=== PATIENT | female | born 1945 | race Caucasian/White ===

== ENCOUNTER 2017-11-29 19:08 | Inpatient (IN) | payer MEDICARE, MEDICAID ==
--- NOTE | 2017-11-29 19:38 | ED Physician Chart ---
ED Chief Complaint/HPI - Patient Information Date Seen:: 11/29/17 Time Seen:: 19:33 Chief Complaint:: weakness History of Present Illness:: 72 yr old female with weakness from home with her son who she lives with with dm and failure to thrive pt awake alert hx of rt mastectomy and lung ca all under control no abd pain or fever no cough no cp no nvd Allergies:: Allergies Allergy/AdvReac Type Severity Reaction Status Date / Time acetaminophen [From Vicodin] Allergy Verified 11/29/17 19:15 hydrocodone [From Vicodin] Allergy Verified 11/29/17 19:15 morphine Allergy Verified 11/29/17 19:15 Penicillins Allergy Verified 11/29/17 19:15 Vitals:: Vital Signs - 8 hr 11/29/17 19:15 Temp 97.9 F HR 73 RR 16 BP 97/54 O2 Sat % 97 Historian:: Patient, Family Member, Medical Records ED Review of Systems - Review of Systems General/Constitutional: No fever, No chills, No weight loss, No weakness, No diaphoresis, No edema, No loss of appetite Skin: No skin lesions, No rash, No bruising Head: No headache, No light-headedness Eyes: No loss of vision, No pain, No diplopia ENT: No earache, No nasal drainage, No sore throat, No tinnitus Neck: No neck pain, No swelling, No thyromegaly, No stiffness, No mass noted Cardio Vascular: No chest pain, No palpitations, No PND, No orthopnea, No edema Pulmonary: No SOB, No cough, No sputum, No wheezing GI: No nausea, No vomiting, No diarrhea, No pain, No melena, No hematochezia, No constipation, No hematemesis G/U: No dysuria, No frequency, No hematuria Musculoskeletal: No bone or joint pain, No back pain, No muscle pain Endocrine: No polyuria, No polydipsia Psychiatric: No prior psych history, No depression, No anxiety, No suicidal ideation Hematopoietic: No bruising, No lymphadenopathy Allergic/Immuno: No urticaria, No angioedema Neurological: No syncope, No focal symptoms, No weakness, No paresthesia, No headache, No seizure, No dizziness, No confusion, No vertigo ED Past Medical History - Past Medical History Past Medical History: DM, Other (breast ca, lung ca) Family Medical History - Family Member Mother Ethnicity: Non- Living Status: Hx Family Diabetes: Yes ED Physical Exam - Physical Examination General/Constitutional: Awake, Well-developed, well-nourished, Alert, No distress, GCS 15, Non-toxic appearing, Ambulatory Other Gen/Cons comments:: extreme muscle wasting no muscle hardly Head: Atraumatic Eyes: Lids, conjuctiva normal, PERRL, EOMI Skin: No lymphadenopathy ( ecchymosis and bruising lower legs) Other Skin comments:: rt mastectomy ENMT: External ears, nose nl, Nasal exam nl, Lips, teeth, gums nl Neck: Nontender, Full ROM w/o pain, No JVD, No nuchal rigidity, No bruit, No mass, No stridor Respiratory: Nl effort/Exclusion, Clear to Auscultation, No Wheeze/Rhonchi/Rales Cardio Vascular: RRR, No murmur, gallop, rubs, NL S1 S2 GI: No tenderness/rebounding/guarding, No organomegaly, No hernia, Normal BS's, Nondistended, No mass/bruits, No McBurney tenderness : No CVA tenderness Extremities: No tenderness or effusion, Full ROM, normal strength in all extremities, No edema, Normal digits & nails Neuro/Psych: Alert/oriented, DTR's symmetric, Normal sensory exam, Normal motor strength, Judgement/insight normal, Mood normal, Normal gait, No focal deficits Misc: Normal back, No paraspinal tenderness ED Assessment - Assessment General Assessment: failure to thrive ED Septic Shock - . Is Septic Shock (SBP<90, OR Lactate>4 mmol\L) present?: No - <6hrs of presentation: Vital Signs: Vital Signs - 8 hr 11/29/17 19:15 Temp 97.9 F HR 73 RR 16 BP 97/54 O2 Sat % 97 ED Reassessment (Disposition) - Diagnosis Diagnosis:: failure to thrive for admission DR doss - Patient Disposition Admitted to:: Med/Surg
[2017-11-29 20:02] LABS: HEMOGLOBIN 9.7 gm/dL (12-16); MANUAL DIFF REQUIRED? YES; PLATELET COUNT 229 Th/cmm (150-400)
[2017-11-29 20:05] LABS: HEMATOCRIT 28.6 % (41.0-60); MEAN CORPUSCULAR HEMOGLOBIN 31.7 pg (27.0-31.0); MEAN CORPUSCULAR HGB CONC 33.8 pg (28.0-36.0); RED BLOOD COUNT 3.04 Mil/cmm (3.80-5.20); RED CELL DISTRIBUTION WIDTH 14.3 % (11.5-20.0); WHITE BLOOD COUNT 6.8 Th/cmm (4.8-10.8)
[2017-11-29 20:29] LABS: ALB/GLOB RATIO 1.5 (1.0-1.8); ALBUMIN 3.7 gm/dL (3.7-5.3); ANION GAP 15.8 (7.0-16.0); BILIRUBIN,TOTAL 0.4 mg/dL (0.3-1.0); CALCIUM SERUM 8.7 mg/dL (8.6-10.3); CARBON DIOXIDE 16.8 mEq/L (21.0-31.0); CREATININE - SERUM 1.5 mg/dL (0.6-1.2); GFR AFRICAN-AMERICAN 44.2 ml/min (>90); GFR NON AFRICAN-AMERICAN 36.5 ml/min; POTASSIUM SERUM 4.6 mEq/L (3.5-5.1); TOTAL PROTEIN,SERUM 6.2 gm/dL (6.0-8.3)
[2017-11-29 20:32] LABS: BAND NEUTROPHILE 1 % (0-10); BASOPHIL 0 % (0-3); EOSINOPHIL 0 % (0-5); LYMPHOCYTE 6 % (20-50); MONOCYTE 5 % (2-10); NEUTROPHILS 88 % (40-80); PLATELET ESTIMATE ADEQUATE (NORMAL); TOTAL CELLS COUNTED 100
[2017-11-30 01:32] VITALS: BP 109/57
[2017-11-30 06:04] LABS: HEMATOCRIT 27.2 % (41.0-60); MEAN CELL VOLUME 93.2 fl (81-100); MEAN CORPUSCULAR HGB CONC 33.2 pg (28.0-36.0); MEAN PLATELET VOLUME 6.6 fl; PLATELET COUNT 219 Th/cmm (150-400); RED BLOOD COUNT 2.91 Mil/cmm (3.80-5.20); WHITE BLOOD COUNT 6.1 Th/cmm (4.8-10.8)
[2017-11-30 06:18] LABS: ALB/GLOB RATIO 1.5 (1.0-1.8); ALBUMIN 3.4 gm/dL (3.7-5.3); BILIRUBIN,TOTAL 0.3 mg/dL (0.3-1.0); CALCIUM SERUM 8.6 mg/dL (8.6-10.3); CARBON DIOXIDE 17.3 mEq/L (21.0-31.0); CREATININE - SERUM 1.5 mg/dL (0.6-1.2); GFR AFRICAN-AMERICAN 44.2 ml/min (>90); GFR NON AFRICAN-AMERICAN 36.5 ml/min; POTASSIUM SERUM 4.3 mEq/L (3.5-5.1); TOTAL PROTEIN,SERUM 5.7 gm/dL (6.0-8.3)
[2017-11-30 06:30] LABS: CHOLESTEROL 94 mg/dL (<200); HDL -HIGH DENSITY LIPOPROTEIN 38 mg/dL (23-92); TRIGLYCERIDES 137 mg/dL (<150)
[2017-11-30 07:12] LABS: BAND NEUTROPHILE 2 % (0-10); EOSINOPHIL 2 % (0-5); LYMPHOCYTE 7 % (20-50); MANUAL DIFF REQUIRED? YES; MONOCYTE 3 % (2-10); NEUTROPHILS 86 % (40-80); PLATELET ESTIMATE ADEQUATE (NORMAL); TOTAL CELLS COUNTED 100
[2017-11-30] MEDS ORDERED: Albuterol/Ipratropium Neb 3 ML AERS HHN ONE ×2 (07:35→12:34)
--- NOTE | 2017-11-30 08:52 | Diagnostic Imaging Report ---
CHEST X-RAY: AP view INDICATION: Shortness of breath COMPARISON: None FINDINGS: Increased interstitial lung markings are seen particularly of the right lung and right suprahilar region with suggestion of mild prominence of right suprahilar region. No focal consolidation or effusions. Heart size normal. Atherosclerosis is noted with tortuous aorta. Postsurgical changes of the right axillary region are noted. Degenerative changes of the spine are noted with scoliosis. IMPRESSION: Increased interstitial lung markings, particularly of the right lung. Underlying interstitial infiltrates of the right lung cannot be excluded. There is fullness of the right suprahilar region. Underlying occult mass lesion or lymphadenopathy cannot be excluded. Recommend short-term follow-up preferably with CT of the chest with IV contrast.
--- NOTE | 2017-11-30 09:24 | Consultation ---
DATE OF CONSULTATION: 11/30/2017 INPATIENT GI CONSULTATION CONSULTING PHYSICIAN: Veronica Diaz M.D. REASON FOR CONSULTATION: Failure to thrive and weakness. HISTORY OF PRESENT ILLNESS: The patient is a 72-year-old female with past medical history significant for COPD, type 2 diabetes, previous breast cancer and lung cancer who was admitted to the hospital with weakness and failure to thrive as per her family members. The patient reports that she was brought in by family as they were concerned about her not eating well, feeling more weak than usual at home; however, she notes that she does have an appetite and she did eat her breakfast this morning completely. She denies any dysphagia or problem swallowing. She reports that she is hungry, but that she has been maintaining herself on carb-restricted diet given some kidney issues. The patient notes that she has had an EGD and colonoscopy before, but she thinks this was about 10 years ago ____ and she was told that the results were normal. She also reports some increasing amounts of constipation recently, although denies any blood in her stool or hematemesis or melena. Of note, the patient reports that she would not want a G-tube placed if this was offered to her. PAST MEDICAL HISTORY: Type 2 diabetes, COPD, previous breast and lung cancer, constipation. PAST SURGICAL HISTORY: The patient denies any abdominal surgeries. FAMILY HISTORY: Noncontributory. SOCIAL HISTORY: The patient recently quit smoking about 3 months ago. She drinks two cocktails a week, she reports. ALLERGIES: Reported allergy to acetaminophen, hydrocodone, morphine and penicillin. REVIEW OF SYSTEMS: A 12-point review of systems was performed and the patient is negative other than the pertinent positives are mentioned in the history of present illness. CURRENT MEDICATIONS: Included albuterol. PHYSICAL EXAMINATION: VITAL SIGNS: Blood pressure is 135/70, pulse 96 beats per minute, temperature 98.8, oxygenation is 94%. GENERAL: The patient is sitting upright in bed, alert and oriented x 3. She appears in no apparent distress. HEAD, EARS, EYES, NOSE AND THROAT: Normocephalic, atraumatic appearing head. Pupils are equal and reactive to light. Extraocular muscles are intact with moist mucous membranes. There is some temporal wasting. NECK: No JVD or thyromegaly or lymphadenopathy. CHEST: Clear to auscultation bilaterally. CARDIOVASCULAR: S1, S2 are present, regular rate and rhythm. ABDOMEN: Soft, nontender to palpation. No guarding, no rebound, no fluid distention. EXTREMITIES: Frail appearing. No edema. Pulses are not present. SKIN: There are no obvious jaundice or cyanosis. LABORATORY DATA: White blood cell count is 6.1, hemoglobin 9.0, platelet count is 219. Sodium 130, BUN 67, creatinine 1.5. AST 24, ALT 21, total bilirubin 0.3. No abdominal imaging has been performed. IMPRESSION: This is a 72-year-old female who is admitted to the hospital with weakness, failure to thrive, who has a history of breast and lung cancer. PLAN: 1. Weakness. 2. Failure to thrive. 3. Constipation and change in bowel habits. 4. Weight loss. 5. History of breast and lung cancer. DISCUSSION: I spoke with the patient today about her eating habits and she reports that she is hungry and able to swallow well, although she has been restricting herself with carb diet. She fears that this is affecting her kidneys. It seems that she has been losing weight as she does appear very frail. Her last EGD and colonoscopy was about 10 years ago and she reports this was normal. Given her change in bowel habits and her weight loss, I think that repeating EGD and colonoscopy now is likely warranted to ensure that there is no neoplasm. Of note, the patient does not want a G-tube placed, this was offered to her. She reports that she eats and swallows food well at this point and does not think she needs a G-tube and will not consent for one. RECOMMENDATIONS: 1. We will plan for EGD and colonoscopy on Saturday morning with bowel preparation Saturday evening as discussed above. 2. Continue oral diet as tolerated until then. 3. Management of the patient's other chronic medical illnesses as per Dr. Diaz. Thank you for allowing me to participate in her care. Please call with any further questions. JOB# [id number]
[2017-11-30] MEDS ORDERED: Albuterol/Ipratropium Neb 3 ML AERS HHN PRN (15:26)
[2017-11-30 16:10] LABS: A1C % 4.5 % (4.0-6.0)
[2017-11-30] MEDS: Albuterol/Ipratropium Neb 3 ML AERS HHN SCH ×2 (19:00→23:49)
[2017-11-30] MEDS ORDERED: Non-Formulary Item 1 EA (Albuterol Sulfate [Ventolin Hfa] 1 PUFF) IH PRN (22:35)
[2017-11-30] MEDS ORDERED: DEXTROMETHORPHAN HBR 15 MG PO PRN (22:35)
[2017-11-30] MEDS ORDERED: PATIROMER CALCIUM SORBITEX 8.4 GM PO SCH (22:45)
[2017-11-30] MEDS: INSULIN ASPART SLIDING SCALE 100 UNITS/ML UNIT SUBQ SCH (23:37)
[2017-12-01] MEDS: Albuterol/Ipratropium Neb 3 ML AERS HHN SCH ×6 (03:14→22:19)
[2017-12-01] MEDS ORDERED: Ipratropium Neb 0.5 mg/2.5 mL UD HHN SCH (07:00)
--- NOTE | 2017-12-01 08:21 | GI Progress Note ---
Subjective - Review of Systems Service Date: 12/01/17 Subjective: No new events Objective - Results Result Diagrams: 11/30/17 05:00 11/30/17 05:00 Recent Labs: Laboratory Last Values WBC 6.1 Th/cmm (4.8-10.8) 11/30/17 05:00 RBC 2.91 Mil/cmm (3.80-5.20) L 11/30/17 05:00 Hgb 9.0 gm/dL (12-16) L 11/30/17 05:00 Hct 27.2 % (41.0-60) L 11/30/17 05:00 MCV 93.2 fl (81-100) 11/30/17 05:00 MCH 31.0 pg (27.0-31.0) 11/30/17 05:00 MCHC Differential 33.2 pg (28.0-36.0) 11/30/17 05:00 RDW 14.0 % (11.5-20.0) 11/30/17 05:00 Plt Count 219 Th/cmm (150-400) 11/30/17 05:00 MPV 6.6 fl 11/30/17 05:00 Neutrophils % PRODUCTION HELPER 11/30/17 05:00 Band Neutrophils % 2 % (0-10) 11/30/17 05:00 Lymphocytes % PRODUCTION HELPER 11/30/17 05:00 Monocytes % PRODUCTION HELPER 11/30/17 05:00 Eosinophils % PRODUCTION HELPER 11/30/17 05:00 Basophils % PRODUCTION HELPER 11/30/17 05:00 Neutrophils (Manual) 86 % (40-80) H 11/30/17 05:00 Lymphocytes 7 % (20-50) L 11/30/17 05:00 Monocytes 3 % (2-10) 11/30/17 05:00 Eosinophils 2 % (0-5) 11/30/17 05:00 Basophils 0 % (0-3) 11/29/17 19:57 Platelet Estimate ADEQUATE (NORMAL) 11/30/17 05:00 Sodium 130 mEq/L (136-145) L 11/30/17 05:00 Potassium 4.3 mEq/L (3.5-5.1) 11/30/17 05:00 Chloride 105 mEq/L (98-107) 11/30/17 05:00 Carbon Dioxide 17.3 mEq/L (21.0-31.0) L 11/30/17 05:00 Anion Gap 12.0 (7.0-16.0) 11/30/17 05:00 BUN 67 mg/dL (7-25) H 11/30/17 05:00 Creatinine 1.5 mg/dL (0.6-1.2) H 11/30/17 05:00 Est GFR ( Amer) 44.2 ml/min (>90) 11/30/17 05:00 Est GFR (Non-Af Amer) 36.5 ml/min 11/30/17 05:00 BUN/Creatinine Ratio 44.7 11/30/17 05:00 Glucose 379 mg/dL (70-105) H D 11/30/17 05:00 POC Glucose 218 MG/DL (70 - 105) H 12/01/17 06:27 Hemoglobin A1c % 4.5 % (4.0-6.0) 11/30/17 05:00 Calcium 8.6 mg/dL (8.6-10.3) 11/30/17 05:00 Total Bilirubin 0.3 mg/dL (0.3-1.0) 11/30/17 05:00 AST 24 U/L (13-39) 11/30/17 05:00 ALT 21 U/L (7-52) 11/30/17 05:00 Alkaline Phosphatase 60 U/L (34-104) 11/30/17 05:00 Total Protein 5.7 gm/dL (6.0-8.3) L 11/30/17 05:00 Albumin 3.4 gm/dL (3.7-5.3) L 11/30/17 05:00 Globulin 2.3 gm/dL 11/30/17 05:00 Albumin/Globulin Ratio 1.5 (1.0-1.8) 11/30/17 05:00 Triglycerides 137 mg/dL (<150) 11/30/17 05:00 Cholesterol 94 mg/dL (<200) 11/30/17 05:00 LDL Cholesterol Direct 28 mg/dL (75-193) L 11/30/17 05:00 HDL Cholesterol 38 mg/dL (23-92) 11/30/17 05:00 - Physical Exam Vitals and I&O: Vital Signs Temp 99.1 F 12/01/17 07:53 Pulse 104 06/24/18 07:53 Resp 18 12/01/17 08:00 BP 114/59 12/01/17 07:53 Pulse Ox 91 12/01/17 07:53 Intake & Output 11/30/17 12/01/17 12/01/17 18:59 06:59 18:59 Intake Total 1000 Balance 1000 Weight (lbs) 45.178 kg 48.081 kg Intake: Oral 1000 Other: # Voids 3 # Bowel Movements 0 Weight Source Bedscale Bedscale Active Medications: Current Medications Acetaminophen (Tylenol Extra Strength) 1,000 mg PO BID [facility] Stop: 01/30/18 08:59 Albuterol/Ipratropium (Duoneb Neb) 3 ml HHN Q4HRT [facility] Stop: 01/29/18 18:59 Last Admin: 12/01/17 06:47 Dose: 3 ml Albuterol/Ipratropium (Duoneb Neb) 3 ml HHN [id number] PRN PRN Reason: Shortness of Breath Stop: 01/29/18 18:59 Aspirin (Aspirin Chewable) 81 mg PO DAILY ANG[facility] Stop: 01/30/18 08:59 Atorvastatin Calcium (Lipitor) 80 mg PO QPM ANGELA; Protocol Stop: 01/30/18 16:59 Clopidogrel Bisulfate (Plavix) 75 mg PO DAILY [facility] Stop: 01/30/18 08:59 Fluticasone Propionate (Flonase) 1 spr NS QPM [facility] Stop: 01/30/18 16:59 Insulin Aspart (Novolog Insulin Sliding Scale) 0 units SUBQ Q6HR ANGELA; Protocol Stop: 01/30/18 00:00 Last Admin: 11/30/17 23:37 Dose: 8 units Ipratropium [place] (Atrovent Neb 0.5mg/2.5ml) 0.5 mg HHN QIDRT ANGELA Stop: 01/30/18 06:59 Miscellaneous (Albuterol Sulfate [Ventolin Hfa]) 1 puff IH BID PRN PRN Reason: Shortness of Breath Miscellaneous (Cholecalciferol (Vitamin D3) [Vitamin D3]) 1 tab PO DAILY [facility] Stop: 01/30/18 08:59 Miscellaneous (Cyanocobalamin/Folic Acid [Vitamin W96-Ddoiw Acid Tablet]) 1 each PO DAILY [facility] Stop: 01/30/18 08:59 Miscellaneous (Dextromethorphan Hbr [Tussin Cough]) 15 mg PO QPM PRN PRN Reason: Cough Miscellaneous (Fluticasone/Vilanterol [Breo Ellipta 200-25 Mcg Inh]) 1 each IH QPM [facility]GEL[facility] Stop: 01/30/18 16:59 Miscellaneous (Insulin Glargine,Hum.Rec.Anlog [Lantus Solostar]) 15 unit SQ QPM [facility] Stop: 01/30/18 16:59 Miscellaneous (Patiromer Calcium Sorbitex [Veltassa]) 8.4 gm PO 2XW [facility] Stop: 01/29/18 22:44 Montelukast Sodium (Singulair) 10 mg PO QPM [facility] Stop: 01/30/18 16:59 Multivitamins/Vitamin C (Theragran) 1 tab PO DAILY ANG[facility] Stop: 01/30/18 08:59 Nicotine (Nicotine Transdermal System) 21 mg TD DAILY ANG[facility] Stop: 01/30/18 08:59 Venlafaxine HCl (Effexor) mg PO DAILY ANGELA; Protocol Stop: 01/30/18 08:59 General: Alert, Oriented x3 HEENT: Atraumatic Cardiovascular: Regular rate Abdomen: Bowel sounds, Soft, no Tender, no Hepatomegaly, no Splenomegaly, no Distended, no Rebound, no Mass Extremities: no Clubbing Skin: no Rash Psych/Mental Status: Mental status NL - Procedures Procedures: Procedures Procedure Code Date INDIVID PSYCHOTHERAP NEC 94.39 06/14/05 OTHER GROUP THERAPY 94.44 06/14/05 RECREATIONAL THERAPY 93.81 06/14/05 Assessment/Plan - Assessment Assessment: # Anorexia # failure to thrive # Weight loss # Constipation # COPD # History of breast cancer Pt notes she has been losing weight, but she has been eating and has an appetite. Also reports onset of constipation over the past several months. Last EGD/colo was about 10 years ago as per the patient Plan: - EGD/colo tomorrow with bowel prep tonight. - clears, NPO after midnight - 4 L golytely Further recommendations to follow endoscopy
[2017-12-01] MEDS: Multivitamin Tab PO SCH (09:14)
[2017-12-01] MEDS: Nicotine 21 mg/24 hr Tdm TD SCH (09:14)
[2017-12-01] MEDS: Aspirin 81mg Chewable Tab PO SCH (09:15)
[2017-12-01] MEDS: Acetaminophen 500 MG TAB PO SCH ×2 (09:15→17:08)
[2017-12-01] MEDS: Non-Formulary Item 1 EA (Cholecalciferol (Vitamin D3) [Vitamin D3] 1 TAB) PO SCH (09:16)
[2017-12-01] MEDS: INSULIN ASPART SLIDING SCALE 100 UNITS/ML UNIT SUBQ SCH ×4 (09:19→23:37)
[2017-12-01] MEDS: CYANOCOBALAMIN PO SCH (09:19)
[2017-12-01] MEDS: FOLIC ACID PO SCH (09:19)
[2017-12-01] MEDS: [UNRECOGNIZED DRUG - OTHER] PO SCH (09:19)
--- NOTE | 2017-12-01 09:43 | Diagnostic Imaging Report ---
Head CT without intravenous contrast Indication: CVA Comparison: None Technique: Axial images were obtained from the vertex to the skull base without IV contrast. Coronal reconstructions were made. Total DLP: 843, CTDI 44 FINDINGS: Images of the brain obtained without contrast demonstrate no evidence of an acute hemorrhage. Right parietal occipital lobe encephalomalacia is noted. The ventricles and basal cisterns are patent. There is mild atrophy. No mass effect or midline shift. No evidence of a skull fracture or focal soft tissue swelling. There is mild mucosal thickening in the paranasal sinuses. Atherosclerosis is noted. IMPRESSION: No evidence of acute intracranial hemorrhage. 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 Mild atrophy. Atherosclerotic vascular disease.
--- NOTE | 2017-12-01 11:51 | General Progress Note ---
Subjective - Review of Systems Events since last encounter: in no distress Objective - Results Result Diagrams: 11/30/17 05:00 11/30/17 05:00 Recent Labs: Laboratory Last Values WBC 6.1 Th/cmm (4.8-10.8) 11/30/17 05:00 RBC 2.91 Mil/cmm (3.80-5.20) L 11/30/17 05:00 Hgb 9.0 gm/dL (12-16) L 11/30/17 05:00 Hct 27.2 % (41.0-60) L 11/30/17 05:00 MCV 93.2 fl (81-100) 11/30/17 05:00 MCH 31.0 pg (27.0-31.0) 11/30/17 05:00 MCHC Differential 33.2 pg (28.0-36.0) 11/30/17 05:00 RDW 14.0 % (11.5-20.0) 11/30/17 05:00 Plt Count 219 Th/cmm (150-400) 11/30/17 05:00 MPV 6.6 fl 11/30/17 05:00 Neutrophils % PLATE WORKER 11/30/17 05:00 Band Neutrophils % 2 % (0-10) 11/30/17 05:00 Lymphocytes % PLATE WORKER 11/30/17 05:00 Monocytes % PLATE WORKER 11/30/17 05:00 Eosinophils % PLATE WORKER 11/30/17 05:00 Basophils % PLATE WORKER 11/30/17 05:00 Neutrophils (Manual) 86 % (40-80) H 11/30/17 05:00 Lymphocytes 7 % (20-50) L 11/30/17 05:00 Monocytes 3 % (2-10) 11/30/17 05:00 Eosinophils 2 % (0-5) 11/30/17 05:00 Basophils 0 % (0-3) 11/29/17 19:57 Platelet Estimate ADEQUATE (NORMAL) 11/30/17 05:00 Sodium 130 mEq/L (136-145) L 11/30/17 05:00 Potassium 4.3 mEq/L (3.5-5.1) 11/30/17 05:00 Chloride 105 mEq/L (98-107) 11/30/17 05:00 Carbon Dioxide 17.3 mEq/L (21.0-31.0) L 11/30/17 05:00 Anion Gap 12.0 (7.0-16.0) 11/30/17 05:00 BUN 67 mg/dL (7-25) H 11/30/17 05:00 Creatinine 1.5 mg/dL (0.6-1.2) H 11/30/17 05:00 Est GFR ( Amer) 44.2 ml/min (>90) 11/30/17 05:00 Est GFR (Non-Af Amer) 36.5 ml/min 11/30/17 05:00 BUN/Creatinine Ratio 44.7 11/30/17 05:00 Glucose 379 mg/dL (70-105) H D 11/30/17 05:00 POC Glucose 218 MG/DL (70 - 105) H 12/01/17 06:27 Hemoglobin A1c % 4.5 % (4.0-6.0) 11/30/17 05:00 Calcium 8.6 mg/dL (8.6-10.3) 11/30/17 05:00 Total Bilirubin 0.3 mg/dL (0.3-1.0) 11/30/17 05:00 AST 24 U/L (13-39) 11/30/17 05:00 ALT 21 U/L (7-52) 11/30/17 05:00 Alkaline Phosphatase 60 U/L (34-104) 11/30/17 05:00 Total Protein 5.7 gm/dL (6.0-8.3) L 11/30/17 05:00 Albumin 3.4 gm/dL (3.7-5.3) L 11/30/17 05:00 Globulin 2.3 gm/dL 11/30/17 05:00 Albumin/Globulin Ratio 1.5 (1.0-1.8) 11/30/17 05:00 Triglycerides 137 mg/dL (<150) 11/30/17 05:00 Cholesterol 94 mg/dL (<200) 11/30/17 05:00 LDL Cholesterol Direct 28 mg/dL (75-193) L 11/30/17 05:00 HDL Cholesterol 38 mg/dL (23-92) 11/30/17 05:00 - Physical Exam Vitals and I&O: Vital Signs Temp 99.1 F 12/01/17 07:53 Pulse 104 12/01/17 07:53 Resp 18 12/01/17 08:00 BP 114/59 12/01/17 07:53 Pulse Ox 91 12/01/17 07:53 Intake & Output 11/30/17 12/01/17 12/01/17 18:59 06:59 18:59 Intake Total 1000 Balance 1000 Weight (lbs) 45.178 kg 48.081 kg Intake: Oral 1000 Other: # Voids 3 # Bowel Movements 0 Weight Source Bedscale Bedscale Active Medications: Current Medications Acetaminophen (Tylenol Extra Strength) 1,000 mg PO BID [facility] Stop: 01/30/18 08:59 Last Admin: 12/01/17 09:15 Dose: 1,000 mg Albuterol/Ipratropium (Duoneb Neb) 3 ml HHN Q4HRT [facility] Stop: 01/29/18 18:59 Last Admin: 12/01/17 06:47 Dose: 3 ml Albuterol/Ipratropium (Duoneb Neb) 3 ml HHN [id number] PRN PRN Reason: Shortness of Breath Stop: 01/29/18 18:59 Aspirin (Aspirin Chewable) 81 mg PO DAILY [facility] Stop: 01/30/18 08:59 Last Admin: 12/01/17 09:15 Dose: Not Given Atorvastatin Calcium (Lipitor) 80 mg PO QPM [facility]; Protocol Stop: 01/30/18 16:59 Bisacodyl (Dulcolax 5 Mg Ec Tab) 10 mg PO X1 ONE Stop: 12/01/17 16:01 Clopidogrel Bisulfate (Plavix) 75 mg PO DAILY [facility] Stop: 01/30/18 08:59 Last Admin: 12/01/17 09:15 Dose: 75 mg Fluticasone Propionate (Flonase) 1 spr NS QPM [facility] Stop: 01/30/18 16:59 Insulin Aspart (Novolog Insulin Sliding Scale) 0 units SUBQ Q6HR [facility]; Protocol Stop: 01/30/18 00:00 Last Admin: 12/01/17 09:19 Dose: Not Given Ipratropium [place] (Atrovent Neb 0.5mg/2.5ml) 0.5 mg HHN QIDRT [facility] Stop: 01/30/18 06:59 Miscellaneous (Albuterol Sulfate [Ventolin Hfa]) 1 puff IH BID PRN PRN Reason: Shortness of Breath Miscellaneous (Cholecalciferol (Vitamin D3) [Vitamin D3]) 1 tab PO DAILY [facility] Stop: 01/30/18 08:59 Last Admin: 12/01/17 09:16 Dose: Not Given Miscellaneous (Cyanocobalamin/Folic Acid [Vitamin Y08-Phuyg Acid Tablet]) 1 each PO DAILY [facility] Stop: 01/30/18 08:59 Last Admin: 12/01/17 09:19 Dose: Not Given Miscellaneous (Dextromethorphan Hbr [Tussin Cough]) 15 mg PO QPM PRN PRN Reason: Cough Miscellaneous (Fluticasone/Vilanterol [Breo Ellipta 200-25 Mcg Inh]) 1 each IH QPM [facility] Stop: 01/30/18 16:59 Miscellaneous (Insulin Glargine,Hum.Rec.Anlog [Lantus Solostar]) 15 unit SQ QPM [facility] Stop: 01/30/18 16:59 Miscellaneous (Patiromer Calcium Sorbitex [Veltassa]) 8.4 gm PO 2XW [facility] Stop: 01/29/18 22:44 Montelukast Sodium (Singulair) 10 mg PO QPM [facility] Stop: 01/30/18 16:59 Multivitamins/Vitamin C (Theragran) 1 tab PO DAILY [facility] Stop: 01/30/18 08:59 Last Admin: 12/01/17 09:14 Dose: 1 tab Nicotine (Nicotine Transdermal System) 21 mg TD DAILY [facility] Stop: 01/30/18 08:59 Last Admin: 12/01/17 09:14 Dose: 21 mg Venlafaxine HCl (Effexor) mg PO DAILY [facility]; Protocol Stop: 01/30/18 08:59 General: Alert, Oriented x3 HEENT: Atraumatic Cardiovascular: Regular rate Abdomen: Bowel sounds, Soft, no Tender, no Hepatomegaly, no Splenomegaly, no Distended, no Rebound, no Mass Extremities: no Clubbing Skin: no Rash Psych/Mental Status: Mental status NL - Procedures Procedures: Procedures Procedure Code Date INDIVID PSYCHOTHERAP NEC 94.39 06/14/05 OTHER GROUP THERAPY 94.44 06/14/05 RECREATIONAL THERAPY 93.81 06/14/05 Nutritional Asmnt/Malnutr-PDOC - Dietary Evaluation Malnutrition Findings (Please click <Entered> for more info): Nutritional Asmnt/Malnutrition Start: 11/30/17 15: 19 Text: Status: Complete Freq: Protocol: Document 11/30/17 15:19 [email or web address] (Rec: 11/30/17 15:34 [email or web address] MATHEWS- [email or web address]) Nutritional Asmnt/Malnutrition Patient General Information Nutritional Screening High Risk Diagnosis Recurrent lung cancer, encephalopathy, R/O CVA, failure to thrive Pertinent Medical Hx/Surgical Hx recurrent lung cancer, encephalopathy Subjective Information Per nursing flowsheets, patient with poor intake and weightl oss prior to arrival. Current Diet Order/ Nutrition Support Regular Patient / S.O Not Indicated Pertinent Medications Veltassa, lantus, lipitor, vitamin D3, vitamin B12, folic acid, theragran Pertinent Labs (11/30) Na 130, BUN 67, Cr 1.5, glucose 379, albumin 3.4 Nutritional Hx/Data Height 1.7 m Height (Calculated Centimeters) 170.2 Current Weight (lbs) 44.906 kg Weight (Calculated Kilograms) 44.9 Weight (Calculated Grams) 88066.6 [place] Body Weight 135 % [place] Body Weight 73 Body Mass Index (BMI) 15.5 Recent Weight Change Yes Weight Status Underweight GI Symptoms GI Symptoms None Last BM 11/30 x 1 Difficult in: None Food Allergies No Cultural/Ethnic/Jew Belief none indicated Skin Integrity/Comment: Satish 17, sacral area reddened Estimated Nutritional Goals BEE in Kcals: Using Current wt Calories/Kcals/Kg Current BW 45kg (30-35 kcal/kg ) Kcals Calculated ~7937-9531 kcal/day Protein: Using Current wt Protein g/k.1-1.3 gm/kg Protein Calculated ~50-60 gm/day Fluid: ml ~6930-4923 ml/day Nutritional Problem 2. Problem Problem Inadequate oral intake related to Etiology possible poor appetite, weight loss and inadequate intake prior to arrival aeb Signs/Symptoms: BMI 15.6, oral intake meeting <75% of nutrient needs 1. Problem Problem Altered nutrition related lab values related to e Etiology electrolyte imbalance aeb Signs/Symptoms: Na 130 Intervention/Recommendation Comments 1. Continue regular diet as tolerated by patient. 2. Consider adding Ensure TID with meals to supplement calorie and protein intake. 3. Monitor blood glucose and consider checking HGA1C due to 1 episode of hyperglycemia; will monitor for need for CCHO diet. Expected Outcomes/Goals Expected Outcomes/Goals oral intake to meet >75% of meals, weight stable or increases toward IBW, nutrition related labs WNL
--- NOTE | 2017-12-01 15:39 | Consultation ---
DATE OF CONSULTATION: 12/01/2017 DATE OF CONSULTATION: 12/01/[address] Diaz. Thank you very much Dr. Diaz for this consultation. HISTORY OF PRESENT ILLNESS: This is a nice 72-year-old lady with a history of lung cancer diagnosed and treated about a year ago with radiation. According to the patient, she was cancer free. Last PET scan was done 2 months ago was clear. She sees an oncologist in [place]. She also has history of breast cancer, status post mastectomy in 2001. She presents with failure to thrive. She is not eating much and she is admitted for further treatment and management and workup. PAST MEDICAL HISTORY: As above. SOCIAL HISTORY: Smoking for 50 years. She says she quit 3 months ago. According to nursing staff, the patient had her cigarettes with her, she wanted to smoke earlier. Other medical problems, COPD, not on home oxygen or nebulizer machine inhalers. REVIEW OF SYSTEMS: GENERAL: Some weakness and fatigue. CARDIOVASCULAR: No chest pain or palpation. RESPIRATORY: No shortness of breath. GASTROINTESTINAL: No nausea or vomiting. PHYSICAL EXAMINATION: GENERAL: Awake, alert, not in acute distress. VITAL SIGNS: Temperature 99.1, pulse 104, respiration 18, blood pressure , saturation is 97%. HEENT: Atraumatic, normocephalic. Pupils react to light and accommodation. Ears, nose, and throat normal. NECK: Supple. No JVD. CHEST: There are decreased breath sounds bilaterally. Minimal rhonchi, no wheezing. HEART: Regular rhythm. No murmurs. ABDOMEN: Soft, nontender. EXTREMITIES: No edema. LABORATORY DATA: WBC 6.1, hemoglobin 9.0, hematocrit 27.2, platelets 219. Sodium was 130, potassium is 4.3, BUN is 67, creatinine 1.5, albumin 3.4. Chest x-ray: Scattered interstitial infiltrates, more on the right than the left. IMPRESSION: This is a 72-year-old female with failure to thrive, underlying history of chronic obstructive pulmonary disease and lung cancer. PLAN: 1. Workup. 2. CT of the chest for further evaluation. 3. Nebulizer treatment. 4. GI workup. 5. We will follow the patient with you. Thank you very much for this consultation. JOB# [id number]
[2017-12-01] MEDS ORDERED: Non-Formulary Item 1 EA (Fluticasone/Vilanterol [Breo Ellipta 200-25 Mcg Inh] 1 EACH) IH SCH (17:00)
[2017-12-01] MEDS: INSULIN GLARGINE HUM REC ANLOG 15 UNIT SQ SCH (17:07)
[2017-12-01] MEDS: Fluticasone Propionate 0.05mg/Actuation 16gm Nasal Spray NS SCH (17:14)
[2017-12-01] MEDS ORDERED: PATIROMER CALCIUM SORBITEX 8.4 GM PO SCH (17:15)
[2017-12-01] MEDS ORDERED: DEXTROMETHORPHAN HBR 15 MG PO PRN (17:40)
[2017-12-01] MEDS ORDERED: D5-0.45NS 1,000 ML IV SCH (20:30)
--- NOTE | 2017-12-02 00:02 | History & Physical ---
ADMIT DATE: 11/30/2017 This patient is a 72-year-old female patient who was admitted for lung cancer, status post radiation with increasing failure to thrive, not eating much. HISTORY OF PRESENT ILLNESS: A 72-year-old female with history of lung cancer, treated ____ year ago with radiation as well as chemo. The patient's last PET scan was done 2 months ago. The patient was seen by oncologist in [place]. The patient also has history of breast cancer, history of status post mastectomy in 2001, and the patient has not been eating ____ days. The patient is being admitted. The patient has a history of smoking for 50 years. The patient has COPD and the patient is not on home oxygen. The patient complains of weakness and fatigue. PHYSICAL EXAMINATION: HEAD: Normal. ENT: Normal. NECK: Supple, nontender. LUNGS: Clear. CARDIOVASCULAR SYSTEM: S1, S2 heard. ABDOMEN: Soft. Bowel sounds are heard. CENTRAL NERVOUS SYSTEM: Grossly normal. LABORATORY DATA: BUN was high at 67. Creatinine was 1.7, now 1.5. Electrolytes are normal. Albumin is slightly low. DIAGNOSES: History of failure to thrive, history of lung cancer, history of chronic obstructive pulmonary disease, history of acute on chronic renal failure, dehydration, history of mastectomy, history of breast cancer in 2001, history of radiation therapy in the past, and malnutrition. PLAN: The patient is going to be admitted. I will go ahead and get Pulmonary consult as well as Oncology consult and I will follow the patient. JOB# [id number]
[2017-12-02] MEDS: Albuterol/Ipratropium Neb 3 ML AERS HHN SCH ×6 (02:58→22:26)
[2017-12-02 06:18] LABS: % BASOPHILS 0.5 % (0.0-2.0); % EOSINOPHILS 4.7 % (0.0-5.0); % LYMPHOCYTES 7.7 % (20.0-50.0); % NEUTROPHILS 79.1 % (40.0-80.0); EOSINOPHILE ABSOLUTE 0.3 Th/cmm (0.1-0.4); HEMATOCRIT 26.5 % (41.0-60); HEMOGLOBIN 8.8 gm/dL (12-16); LYMPHOCYTE ABSOLUTE 0.4 Th/cmm (1.5-3.0); MEAN CORPUSCULAR HEMOGLOBIN 31.3 pg (27.0-31.0); MEAN CORPUSCULAR HGB CONC 33.3 pg (28.0-36.0); MEAN PLATELET VOLUME 6.2 fl; MONOCYTE ABSOLUTE 0.5 Th/cmm (0.3-1.0); NEUTROPHILE ABSOLUTE 4.5 Th/cmm (1.8-8.0); PLATELET COUNT 224 Th/cmm (150-400); RED BLOOD COUNT 2.81 Mil/cmm (3.80-5.20); RED CELL DISTRIBUTION WIDTH 14.3 % (11.5-20.0); WHITE BLOOD COUNT 5.7 Th/cmm (4.8-10.8)
[2017-12-02 06:37] LABS: ALB/GLOB RATIO 1.5 (1.0-1.8); ALBUMIN 3.6 gm/dL (3.7-5.3); ANION GAP 12.7 (7.0-16.0); BILIRUBIN,TOTAL 0.4 mg/dL (0.3-1.0); CALCIUM SERUM 8.8 mg/dL (8.6-10.3); CARBON DIOXIDE 20.1 mEq/L (21.0-31.0); CREATININE - SERUM 1.3 mg/dL (0.6-1.2); GFR AFRICAN-AMERICAN 52.1 ml/min (>90); POTASSIUM SERUM 3.8 mEq/L (3.5-5.1)
[2017-12-02] MEDS ORDERED: Lidocaine 2% Gel 5 mL TP ONE (09:05)
[2017-12-02] MEDS ORDERED: Propofol 10 mg/mL 20mL Vial **SURGERY USE ONLY IV ONE (09:05)
[2017-12-02] MEDS: Aspirin 81mg Chewable Tab PO SCH (09:27)
[2017-12-02] MEDS: Acetaminophen 500 MG TAB PO SCH ×3 (09:27→16:54)
[2017-12-02] MEDS: Nicotine 21 mg/24 hr Tdm TD SCH (09:28)
[2017-12-02] MEDS: Multivitamin Tab PO SCH (09:28)
[2017-12-02] MEDS: FOLIC ACID PO SCH (09:28)
[2017-12-02] MEDS: Non-Formulary Item 1 EA (Cholecalciferol (Vitamin D3) [Vitamin D3] 1 TAB) PO SCH (09:28)
[2017-12-02] MEDS: CYANOCOBALAMIN PO SCH (09:28)
[2017-12-02] MEDS: [UNRECOGNIZED DRUG - OTHER] PO SCH (09:28)
[2017-12-02] MEDS: INSULIN ASPART SLIDING SCALE 100 UNITS/ML UNIT SUBQ SCH ×4 (09:36→23:34)
[2017-12-02] MEDS: Guaifenesin DM 10 ML UDC PO PRN ×2 (10:46→21:09)
--- NOTE | 2017-12-02 14:50 | Diagnostic Imaging Report ---
CT scan of the chest without intravenous contrast HISTORY: Lung cancer Total DLP equals 153 CTDI equals 3.9 Axial sections were obtained from a level above the clavicles down to level below the diaphragm. Evaluation of the hilar and vascular structures is limited due to the absence of intravenous contrast. The overall heart size appears normal. Coronary artery and atherosclerotic calcification noted. No significant abnormal enlarged lymph nodes are seen within the mediastinum. There is extensive abnormal pulmonary parenchymal density within the right upper lobe near the midline. This extends to the upper portion of the right hilum and the adjacent pleural surface. Findings consistent with patient's history of neoplasm. There is a small right pleural effusion. Bilateral predominantly lower lobe interstitial changes noted within the lower lobes of the lung (left greater than right). The appearance is consistent with a chronic etiology. No other discrete abnormal masses or nodules are seen. Limited sections below the diaphragm demonstrate numerous punctate calcifications within the pancreas. Findings consistent with changes of chronic pancreatitis. Extensive atherosclerotic calcification also noted. There is partial visualization of what appears to be aneurysmal dilatation of the upper abdominal aorta with a maximum diameter seen in the 3.5 cm. IMPRESSION: 1. Abnormal pulmonary parenchymal density within the right upper lobe as described above. Findings consistent with the patient's history of neoplasm. If possible, comparison with prior imaging studies would be helpful 2. Severe coronary artery and atherosclerotic vascular calcification 3. Bilateral lower lobe (left greater than right) pulmonary interstitial changes with an appearance and system with a chronic etiology 4. Numerous pancreatic calcifications consistent with changes of chronic pancreatitis. 5. Small right pleural effusion 6. Partial visualization of what appears to be aneurysmal dilatation involving the upper portion of the abdominal aorta. Maximum diameter of the visualized portion equals approximately 3.5 cm.
[2017-12-02] MEDS: Levofloxacin 500mg/100mL 500 MG/100 ML BAG IV SCH (15:29)
[2017-12-02] MEDS ORDERED: Magnesium Citrate 1.75 GM/300 mL Bottle PO ONE (16:05)
--- NOTE | 2017-12-02 16:21 | General Progress Note ---
Subjective - Review of Systems Events since last encounter: in no acute distress Objective - Results Result Diagrams: 12/02/17 05:51 12/02/17 05:51 Recent Labs: Laboratory Last Values WBC 5.7 Th/cmm (4.8-10.8) 12/02/17 05:51 RBC 2.81 Mil/cmm (3.80-5.20) L 12/02/17 05:51 Hgb 8.8 gm/dL (12-16) L 12/02/17 05:51 Hct 26.5 % (41.0-60) L 12/02/17 05:51 MCV 94.0 fl (81-100) 12/02/17 05:51 MCH 31.3 pg (27.0-31.0) H 12/02/17 05:51 MCHC Differential 33.3 pg (28.0-36.0) 12/02/17 05:51 RDW 14.3 % (11.5-20.0) 12/02/17 05:51 Plt Count 224 Th/cmm (150-400) 12/02/17 05:51 MPV 6.2 fl 12/02/17 05:51 Neutrophils % 79.1 % (40.0-80.0) 12/02/17 05:51 Band Neutrophils % 2 % (0-10) 11/30/17 05:00 Lymphocytes % 7.7 % (20.0-50.0) L 12/02/17 05:51 Monocytes % 8.0 % (2.0-10.0) 12/02/17 05:51 Eosinophils % 4.7 % (0.0-5.0) 12/02/17 05:51 Basophils % 0.5 % (0.0-2.0) 12/02/17 05:51 Neutrophils (Manual) 86 % (40-80) H 11/30/17 05:00 Lymphocytes 7 % (20-50) L 11/30/17 05:00 Monocytes 3 % (2-10) 11/30/17 05:00 Eosinophils 2 % (0-5) 11/30/17 05:00 Basophils 0 % (0-3) 11/29/17 19:57 Platelet Estimate ADEQUATE (NORMAL) 11/30/17 05:00 Sodium 136 mEq/L (136-145) 12/02/17 05:51 Potassium 3.8 mEq/L (3.5-5.1) 12/02/17 05:51 Chloride 107 mEq/L (98-107) 12/02/17 05:51 Carbon Dioxide 20.1 mEq/L (21.0-31.0) L 12/02/17 05:51 Anion Gap 12.7 (7.0-16.0) 12/02/17 05:51 BUN 55 mg/dL (7-25) H 12/02/17 05:51 Creatinine 1.3 mg/dL (0.6-1.2) H 12/02/17 05:51 Est GFR ( Amer) 52.1 ml/min (>90) 12/02/17 05:51 Est GFR (Non-Af Amer) 43.0 ml/min 12/02/17 05:51 BUN/Creatinine Ratio 42.3 12/02/17 05:51 Glucose 165 mg/dL (70-105) H 12/02/17 05:51 POC Glucose 246 MG/DL (70 - 105) H 12/02/17 11:25 Hemoglobin A1c % 4.5 % (4.0-6.0) 11/30/17 05:00 Calcium 8.8 mg/dL (8.6-10.3) 12/02/17 05:51 Total Bilirubin 0.4 mg/dL (0.3-1.0) 12/02/17 05:51 AST 29 U/L (13-39) 12/02/17 05:51 ALT 29 U/L (7-52) 12/02/17 05:51 Alkaline Phosphatase 53 U/L (34-104) 12/02/17 05:51 Total Protein 6.0 gm/dL (6.0-8.3) 12/02/17 05:51 Albumin 3.6 gm/dL (3.7-5.3) L 12/02/17 05:51 Globulin 2.4 gm/dL 12/02/17 05:51 Albumin/Globulin Ratio 1.5 (1.0-1.8) 12/02/17 05:51 Triglycerides 137 mg/dL (<150) 11/30/17 05:00 Cholesterol 94 mg/dL (<200) 11/30/17 05:00 LDL Cholesterol Direct 28 mg/dL (75-193) L 11/30/17 05:00 HDL Cholesterol 38 mg/dL (23-92) 11/30/17 05:00 - Physical Exam Vitals and I&O: Vital Signs Temp 97.5 F 12/02/17 11:55 Pulse 86 12/02/17 15:55 Resp 18 12/02/17 15:55 BP 120/71 12/02/17 11:55 Pulse Ox 96 12/02/17 15:55 Intake & Output 12/01/17 12/02/17 12/02/17 18:59 06:59 18:59 Intake Total 800 Balance 800 Weight (lbs) 48.081 kg 51.8 kg Intake: Oral 800 Other: # Voids 3 1 # Bowel Movements 0 3 Weight Source Bedscale Bedscale Active Medications: Current Medications Acetaminophen (Tylenol Extra Strength) 1,000 mg PO BID [facility] Stop: 01/30/18 08:59 Last Admin: 12/02/17 10:47 Dose: 1,000 mg Acetaminophen (Tylenol) 650 mg PO Q6H PRN PRN Reason: Pain (Mild) Stop: 01/30/18 21:47 Last Admin: 12/01/17 22:07 Dose: 650 mg Albuterol/Ipratropium (Duoneb Neb) 3 ml HHN Q4HRT [facility] Stop: 01/29/18 18:59 Last Admin: 12/02/17 15:55 Dose: 3 ml Albuterol/Ipratropium (Duoneb Neb) 3 ml HHN [id number] PRN PRN Reason: Shortness of Breath Stop: 01/29/18 18:59 Aspirin (Aspirin Chewable) 81 mg PO DAILY [facility] Stop: 01/30/18 08:59 Last Admin: 12/02/17 09:27 Dose: Not Given Atorvastatin Calcium (Lipitor) 80 mg PO QPM [facility]; Protocol Stop: 01/30/18 16:59 Last Admin: 12/01/17 17:13 Dose: 80 mg Clopidogrel Bisulfate (Plavix) 75 mg PO DAILY [facility] Stop: 01/30/18 08:59 Last Admin: 12/02/17 09:28 Dose: Not Given Fluticasone Propionate (Flonase) 1 spr NS QPM [facility] Stop: 01/30/18 16:59 Last Admin: 12/01/17 17:14 Dose: Not Given Guaifenesin/Dextromethorphan (Robitussin Dm) 10 ml PO DAILY PRN PRN Reason: Cough Stop: 01/31/18 08:59 Last Admin: 12/02/17 10:46 Dose: 10 ml Dextrose/Sodium Chloride (D5-0.45ns) 1,000 mls @ 50 mls/hr IV .Q20H [facility] Stop: 01/30/18 20:29 Last Admin: 12/02/17 15:31 Dose: 50 mls/hr Levofloxacin (Levaquin Pb) 500 mg in 100 mls @ 100 mls/hr IV Q24HR [facility] Stop: 01/31/18 13:59 Last Admin: 12/02/17 15:29 Dose: 100 mls/hr Insulin Aspart (Novolog Insulin Sliding Scale) 0 units SUBQ Q6HR [facility]; Protocol Stop: 01/30/18 00:00 Last Admin: 12/02/17 12:48 Dose: 4 units Ipratropium [place] (Atrovent Neb 0.5mg/2.5ml) 0.5 mg HHN QIDRT [facility] Stop: 01/30/18 06:59 Magnesium Citrate (Citroma) 17.5 gm PO X1 ONE Stop: 12/02/17 16:06 Miscellaneous (Cholecalciferol (Vitamin D3) [Vitamin D3]) 1 tab PO DAILY [facility] Stop: 01/30/18 08:59 Last Admin: 12/02/17 09:28 Dose: Not Given Miscellaneous (Cyanocobalamin/Folic Acid [Vitamin B01-Isbof Acid Tablet]) 1 each PO DAILY [facility] Stop: 01/30/18 08:59 Last Admin: 12/02/17 09:28 Dose: Not Given Miscellaneous (Insulin Glargine,Hum.Rec.Anlog [Lantus Solostar]) 15 unit SQ QPM [facility] Stop: 01/30/18 16:59 Last Admin: 12/01/17 17:07 Dose: Not Given Miscellaneous (Patiromer Calcium Sorbitex [Veltassa]) 8.4 gm PO 2XW [facility] Stop: 01/29/18 22:44 Montelukast Sodium (Singulair) 10 mg PO QPM [facility] Stop: 01/30/18 16:59 Last Admin: 06/24/18 17:13 Dose: 10 mg Multivitamins/Vitamin C (Theragran) 1 tab PO DAILY [facility] Stop: 01/30/18 08:59 Last Admin: 12/02/17 09:28 Dose: Not Given Nicotine (Nicotine Transdermal System) 21 mg TD DAILY [facility] Stop: 01/30/18 08:59 Last Admin: 12/02/17 09:28 Dose: Not Given Venlafaxine HCl (Effexor) 37.5 mg PO DAILY [facility]; Protocol Stop: 01/31/18 08:59 Last Admin: 12/02/17 09:28 Dose: Not Given General: Alert, Oriented x3 HEENT: Atraumatic Cardiovascular: Regular rate Abdomen: Bowel sounds, Soft, no Tender, no Hepatomegaly, no Splenomegaly, no Distended, no Rebound, no Mass Extremities: no Clubbing Skin: no Rash Psych/Mental Status: Mental status NL - Procedures Procedures: Procedures Procedure Code Date INDIVID PSYCHOTHERAP NEC 94.39 06/14/05 OTHER GROUP THERAPY 94.44 06/14/05 RECREATIONAL THERAPY 93.81 06/14/05 Nutritional Asmnt/Malnutr-PDOC - Dietary Evaluation Malnutrition Findings (Please click <Entered> for more info): Nutritional Asmnt/Malnutrition Start: 11/30/17 15: 19 Text: Status: Complete Freq: Protocol: Document 11/30/17 15:19 PREM (Rec: 11/30/17 15:34 PREM MATHEWS- [email or web address]) Nutritional Asmnt/Malnutrition Patient General Information Nutritional Screening High Risk Diagnosis Recurrent lung cancer, encephalopathy, R/O CVA, failure to thrive Pertinent Medical Hx/Surgical Hx recurrent lung cancer, encephalopathy Subjective Information Per nursing flowsheets, patient with poor intake and weightl oss prior to arrival. Current Diet Order/ Nutrition Support Regular Patient / S.O Not Indicated Pertinent Medications Veltassa, lantus, lipitor, vitamin D3, vitamin B12, folic acid, theragran Pertinent Labs (11/30) Na 130, BUN 67, Cr 1.5, glucose 379, albumin 3.4 Nutritional Hx/Data Height 1.7 m Height (Calculated Centimeters) 170.2 Current Weight (lbs) 44.906 kg Weight (Calculated Kilograms) 44.9 Weight (Calculated Grams) 22150.6 [place] Body Weight 135 % [place] Body Weight 73 Body Mass Index (BMI) 15.5 Recent Weight Change Yes Weight Status Underweight GI Symptoms GI Symptoms None Last BM 11/30 x 1 Difficult in: None Food Allergies No Cultural/Ethnic/Cheondoism Belief none indicated Skin Integrity/Comment: Satish 17, sacral area reddened Estimated Nutritional Goals BEE in Kcals: Using Current wt Calories/Kcals/Kg Current BW 45kg (30-35 kcal/kg ) Kcals Calculated ~7441-6999 kcal/day Protein: Using Current wt Protein g/k.1-1.3 gm/kg Protein Calculated ~50-60 gm/day Fluid: ml ~7296-2779 ml/day Nutritional Problem 2. Problem Problem Inadequate oral intake related to Etiology possible poor appetite, weight loss and inadequate intake prior to arrival aeb Signs/Symptoms: BMI 15.6, oral intake meeting <75% of nutrient needs 1. Problem Problem Altered nutrition related lab values related to e Etiology electrolyte imbalance aeb Signs/Symptoms: Na 130 Intervention/Recommendation Comments 1. Continue regular diet as tolerated by patient. 2. Consider adding Ensure TID with meals to supplement calorie and protein intake. 3. Monitor blood glucose and consider checking HGA1C due to 1 episode of hyperglycemia; will monitor for need for CCHO diet. Expected Outcomes/Goals Expected Outcomes/Goals oral intake to meet >75% of meals, weight stable or increases toward IBW, nutrition related labs WNL
[2017-12-02] MEDS: INSULIN GLARGINE HUM REC ANLOG 15 UNIT SQ SCH (16:55)
[2017-12-02] MEDS: Fluticasone Propionate 0.05mg/Actuation 16gm Nasal Spray NS SCH (16:57)
--- NOTE | 2017-12-02 18:14 | GI Progress Note ---
Subjective - Review of Systems Service Date: 12/02/17 Subjective: GI NOTE DID NOT FINISH BOWEL PREP. Objective - Results Result Diagrams: 12/02/17 05:51 12/02/17 05:51 Recent Labs: Laboratory Last Values WBC 5.7 Th/cmm (4.8-10.8) 12/02/17 05:51 RBC 2.81 Mil/cmm (3.80-5.20) L 12/02/17 05:51 Hgb 8.8 gm/dL (12-16) L 12/02/17 05:51 Hct 26.5 % (41.0-60) L 12/02/17 05:51 MCV 94.0 fl (81-100) 12/02/17 05:51 MCH 31.3 pg (27.0-31.0) H 12/02/17 05:51 MCHC Differential 33.3 pg (28.0-36.0) 12/02/17 05:51 RDW 14.3 % (11.5-20.0) 12/02/17 05:51 Plt Count 224 Th/cmm (150-400) 12/02/17 05:51 MPV 6.2 fl 12/02/17 05:51 Neutrophils % 79.1 % (40.0-80.0) 12/02/17 05:51 Band Neutrophils % 2 % (0-10) 11/30/17 05:00 Lymphocytes % 7.7 % (20.0-50.0) L 12/02/17 05:51 Monocytes % 8.0 % (2.0-10.0) 12/02/17 05:51 Eosinophils % 4.7 % (0.0-5.0) 12/02/17 05:51 Basophils % 0.5 % (0.0-2.0) 12/02/17 05:51 Neutrophils (Manual) 86 % (40-80) H 11/30/17 05:00 Lymphocytes 7 % (20-50) L 11/30/17 05:00 Monocytes 3 % (2-10) 11/30/17 05:00 Eosinophils 2 % (0-5) 11/30/17 05:00 Basophils 0 % (0-3) 11/29/17 19:57 Platelet Estimate ADEQUATE (NORMAL) 11/30/17 05:00 Sodium 136 mEq/L (136-145) 12/02/17 05:51 Potassium 3.8 mEq/L (3.5-5.1) 12/02/17 05:51 Chloride 107 mEq/L (98-107) 12/02/17 05:51 Carbon Dioxide 20.1 mEq/L (21.0-31.0) L 12/02/17 05:51 Anion Gap 12.7 (7.0-16.0) 12/02/17 05:51 BUN 55 mg/dL (7-25) H 12/02/17 05:51 Creatinine 1.3 mg/dL (0.6-1.2) H 12/02/17 05:51 Est GFR ( Amer) 52.1 ml/min (>90) 12/02/17 05:51 Est GFR (Non-Af Amer) 43.0 ml/min 12/02/17 05:51 BUN/Creatinine Ratio 42.3 12/02/17 05:51 Glucose 165 mg/dL (70-105) H 12/02/17 05:51 POC Glucose 200 MG/DL (70 - 105) H 12/02/17 17:52 Hemoglobin A1c % 4.5 % (4.0-6.0) 11/30/17 05:00 Calcium 8.8 mg/dL (8.6-10.3) 12/02/17 05:51 Total Bilirubin 0.4 mg/dL (0.3-1.0) 12/02/17 05:51 AST 29 U/L (13-39) 12/02/17 05:51 ALT 29 U/L (7-52) 12/02/17 05:51 Alkaline Phosphatase 53 U/L (34-104) 12/02/17 05:51 Total Protein 6.0 gm/dL (6.0-8.3) 12/02/17 05:51 Albumin 3.6 gm/dL (3.7-5.3) L 12/02/17 05:51 Globulin 2.4 gm/dL 12/02/17 05:51 Albumin/Globulin Ratio 1.5 (1.0-1.8) 12/02/17 05:51 Triglycerides 137 mg/dL (<150) 11/30/17 05:00 Cholesterol 94 mg/dL (<200) 11/30/17 05:00 LDL Cholesterol Direct 28 mg/dL (75-193) L 11/30/17 05:00 HDL Cholesterol 38 mg/dL (23-92) 11/30/17 05:00 - Physical Exam Vitals and I&O: Vital Signs Temp 97.8 F 12/02/17 17:58 Pulse 89 12/02/17 17:58 Resp 17 12/02/17 17:58 BP 94/52 12/02/17 17:58 Pulse Ox 96 12/02/17 17:58 Intake & Output 12/01/17 12/02/17 12/02/17 18:59 06:59 18:59 Intake Total 800 Balance 800 Weight (lbs) 48.081 kg 51.8 kg Intake: Oral 800 Other: # Voids 3 1 # Bowel Movements 0 3 Weight Source Bedscale Bedscale Active Medications: Current Medications Acetaminophen (Tylenol Extra Strength) 1,000 mg PO BID [facility] Stop: 01/30/18 08:59 Last Admin: 12/02/17 16:54 Dose: 1,000 mg Acetaminophen (Tylenol) 650 mg PO Q6H PRN PRN Reason: Pain (Mild) Stop: 01/30/18 21:47 Last Admin: 12/01/17 22:07 Dose: 650 mg Albuterol/Ipratropium (Duoneb Neb) 3 ml HHN Q4HRT [facility] Stop: 01/29/18 18:59 Last Admin: 12/02/17 15:55 Dose: 3 ml Albuterol/Ipratropium (Duoneb Neb) 3 ml HHN [id number] PRN PRN Reason: Shortness of Breath Stop: 01/29/18 18:59 Aspirin (Aspirin Chewable) 81 mg PO DAILY [facility] Stop: 01/30/18 08:59 Last Admin: 12/02/17 09:27 Dose: Not Given Atorvastatin Calcium (Lipitor) 80 mg PO QPM [facility]; Protocol Stop: 01/30/18 16:59 Last Admin: 12/02/17 16:54 Dose: 80 mg Clopidogrel Bisulfate (Plavix) 75 mg PO DAILY [facility] Stop: 01/30/18 08:59 Last Admin: 12/02/17 09:28 Dose: Not Given Fluticasone Propionate (Flonase) 1 spr NS QPM [facility] Stop: 01/30/18 16:59 Last Admin: 12/02/17 16:57 Dose: 1 spr Guaifenesin/Dextromethorphan (Robitussin Dm) 10 ml PO DAILY PRN PRN Reason: Cough Stop: 01/31/18 08:59 Last Admin: 12/02/17 10:46 Dose: 10 ml Dextrose/Sodium Chloride (D5-0.45ns) 1,000 mls @ 50 mls/hr IV .Q20H [facility] Stop: 01/30/18 20:29 Last Admin: 12/02/17 15:31 Dose: 50 mls/hr Levofloxacin (Levaquin Pb) 500 mg in 100 mls @ 100 mls/hr IV Q24HR [facility] Stop: 01/31/18 13:59 Last Admin: 12/02/17 15:29 Dose: 100 mls/hr Insulin Aspart (Novolog Insulin Sliding Scale) 0 units SUBQ Q6HR [facility]; Protocol Stop: 01/30/18 00:00 Last Admin: 12/02/17 12:48 Dose: 4 units Ipratropium [place] (Atrovent Neb 0.5mg/2.5ml) 0.5 mg HHN QIDRT [facility] Stop: 01/30/18 06:59 Miscellaneous (Cholecalciferol (Vitamin D3) [Vitamin D3]) 1 tab PO DAILY [facility] Stop: 01/30/18 08:59 Last Admin: 12/02/17 09:28 Dose: Not Given Miscellaneous (Cyanocobalamin/Folic Acid [Vitamin C84-Yaqcn Acid Tablet]) 1 each PO DAILY [facility] Stop: 01/30/18 08:59 Last Admin: 12/02/17 09:28 Dose: Not Given Miscellaneous (Insulin Glargine,Hum.Rec.Anlog [Lantus Solostar]) 15 unit SQ QPM [facility] Stop: 01/30/18 16:59 Last Admin: 12/02/17 16:55 Dose: Not Given Miscellaneous (Patiromer Calcium Sorbitex [Veltassa]) 8.4 gm PO 2XW [facility] Stop: 01/29/18 22:44 Montelukast Sodium (Singulair) 10 mg PO QPM [facility] Stop: 01/30/18 16:59 Last Admin: 12/02/17 16:54 Dose: 10 mg Multivitamins/Vitamin C (Theragran) 1 tab PO DAILY [facility] Stop: 01/30/18 08:59 Last Admin: 12/02/17 09:28 Dose: Not Given Nicotine (Nicotine Transdermal System) 21 mg TD DAILY [facility] Stop: 01/30/18 08:59 Last Admin: 12/02/17 09:28 Dose: Not Given Venlafaxine HCl (Effexor) 37.5 mg PO DAILY [facility]; Protocol Stop: 01/31/18 08:59 Last Admin: 12/02/17 09:28 Dose: Not Given General: Alert, Oriented x3 HEENT: Atraumatic Cardiovascular: Regular rate Abdomen: Bowel sounds, Soft, no Tender, no Hepatomegaly, no Splenomegaly, no Distended, no Rebound, no Mass Extremities: no Clubbing Skin: no Rash Psych/Mental Status: Mental status NL - Procedures Procedures: Procedures Procedure Code Date INDIVID PSYCHOTHERAP NEC 94.39 06/14/05 OTHER GROUP THERAPY 94.44 06/14/05 RECREATIONAL THERAPY 93.81 06/14/05 Assessment/Plan - Assessment Assessment: Assessment: # Anorexia # failure to thrive # Weight loss # Constipation # COPD # History of breast cancer Pt notes she has been losing weight, but she has been eating and has an appetite. Also reports onset of constipation over the past several months. Last EGD/colo was about 10 years ago as per the patient Plan: - EGD/colo tomorrow with continuation of bowel prep tonight. - clears, NPO after midnight - monitor labs. Further recommendations to follow endoscopy
[2017-12-03] MEDS: Albuterol/Ipratropium Neb 3 ML AERS HHN SCH ×3 (02:19→10:55)
--- NOTE | 2017-12-03 02:53 | Consultation ---
DATE OF CONSULTATION: 12/02/2017 INFECTIOUS DISEASE CONSULTATION REFERRING PHYSICIAN: Veronica Diaz MD. REASON FOR CONSULTATION: Pneumonia. HISTORY OF PRESENT ILLNESS: The patient is a 72-year-old female with a past medical history of lung cancer, diagnosed and treated for about a year ago with radiation therapy. The patient also has history of breast cancer, status post mastectomy in 2001. She was brought to the hospital. She was admitted to the hospital on 11/29/2017 for failure to thrive and cachexia.: On the chest x-ray, they found some pneumonia on right lower lobe. ID consult was called for antibiotic management. PAST MEDICAL HISTORY: As mentioned above, history of lung cancer, treated by radiation therapy one year ago. She stated that she is ____. The patient has COPD, history of breast cancer, status post mastectomy in 2001, and history of protein-calorie malnutrition. SOCIAL HISTORY: The patient lives in skilled nursing. The patient has history of smoking for 50 years. She quit smoking 3 months ago. FAMILY HISTORY: Noncontributory. REVIEW OF SYSTEMS: GENERAL: The patient has no fever, no chills. The patient has generalized weakness and tiredness. HEENT: No diplopia, no photophobia, and no sore throat. RESPIRATORY: The patient has cough, but no shortness of breath. CVS: No chest pain. No palpitation. GASTROINTESTINAL: No nausea, no vomiting, no diarrhea, and no constipation. GENITOURINARY: No dysuria. NEUROLOGICAL: No headache, no dizziness, and no focal weakness. PHYSICAL EXAMINATION: GENERAL: The patient is alert and awake. The patient is cachectic. The patient is comfortable, lying in the bed, not in acute distress. VITAL SIGNS: Current vital signs shows temperature is 97.5, pulse is 73, respirations 18, blood pressure is 120/71, and oxygen saturation 98%. HEENT: Head is normocephalic, atraumatic. Oral cavity moist, pink tongue. Eyes: No pallor, no icterus. Pupils: PERRLA, EOMI. NECK: Supple. No JVD. No carotid bruit. Trachea in midline. CHEST: Bilateral breath sounds. Occasional crackles. HEART: S1, S2 within normal limits. Regular rhythm. No murmur or gallop. ABDOMEN: Soft and nontender. Bowel sounds present. EXTREMITIES: No cyanosis, no clubbing, and no edema. NEUROLOGIC: Alert, awake, and oriented x 3. LABORATORY DATA: Lab-reyes, current labs showed WBC count is 5700, hemoglobin is 8.8, hematocrit is 26.5, platelets are 224,000, and neutrophils 79%. Sodium is 136, potassium is 3.8, chloride is 107, bicarbonate is 20, BUN is 55, creatinine is 1.3, and glucose is 165. Blood culture 2 sets are negative. MRSA screen is negative. Chest x-ray showed increased interstitial marking, particularly on the right lung, underlying interstitial infiltrates, right lung cannot be excluded, fullness of right suprahilar area. IMPRESSION: 1. Right-sided pneumonia. 2. Chronic obstructive pulmonary disease. 3. History of lung cancer, treated by radiation. 4. History of breast cancer, status post mastectomy in 2001. 5. Protein-calorie malnutrition. RECOMMENDATIONS: We will start Levaquin. Check a sputum culture. Thank you, Dr. Diaz, for involving me in taking care of this patient. JOB# [id number]
[2017-12-03 06:39] LABS: HEMATOCRIT 25.5 % (41.0-60); HEMOGLOBIN 8.6 gm/dL (12-16); LYMPHOCYTE ABSOLUTE 0.1 Th/cmm (1.5-3.0); MEAN CELL VOLUME 93.2 fl (81-100); MEAN CORPUSCULAR HEMOGLOBIN 31.6 pg (27.0-31.0); MEAN CORPUSCULAR HGB CONC 33.9 pg (28.0-36.0); MEAN PLATELET VOLUME 6.3 fl; NEUTROPHILE ABSOLUTE 3.3 Th/cmm (1.8-8.0); PLATELET COUNT 214 Th/cmm (150-400); RED BLOOD COUNT 2.73 Mil/cmm (3.80-5.20); RED CELL DISTRIBUTION WIDTH 14.2 % (11.5-20.0)
[2017-12-03 06:50] LABS: WHITE BLOOD COUNT 3.4 Th/cmm (4.8-10.8)
[2017-12-03 06:51] LABS: % EOSINOPHILS 0.2 % (0.0-5.0); % LYMPHOCYTES 3.6 % (20.0-50.0); % MONOCYTES 1.1 % (2.0-10.0); % NEUTROPHILS 95.1 % (40.0-80.0)
[2017-12-03 06:58] LABS: ANION GAP 14.7 (7.0-16.0); CALCIUM SERUM 8.5 mg/dL (8.6-10.3); CARBON DIOXIDE 20.4 mEq/L (21.0-31.0); CREATININE - SERUM 1.3 mg/dL (0.6-1.2); GFR AFRICAN-AMERICAN 52.1 ml/min (>90); POTASSIUM SERUM 4.1 mEq/L (3.5-5.1)
[2017-12-03] MEDS ORDERED: INSULIN ASPART, RECOMBINANT 100 UNITS/ML SUBQ ONE (07:13)
[2017-12-03] MEDS: INSULIN ASPART SLIDING SCALE 100 UNITS/ML UNIT SUBQ SCH ×2 (07:15→11:33)
[2017-12-03] MEDS: Aspirin 81mg Chewable Tab PO SCH (08:44)
[2017-12-03] MEDS: Acetaminophen 500 MG TAB PO SCH (08:44)
[2017-12-03] MEDS: CYANOCOBALAMIN PO SCH (08:44)
[2017-12-03] MEDS: [UNRECOGNIZED DRUG - OTHER] PO SCH (08:44)
[2017-12-03] MEDS: Nicotine 21 mg/24 hr Tdm TD SCH (08:44)
[2017-12-03] MEDS: Multivitamin Tab PO SCH (08:44)
[2017-12-03] MEDS: Non-Formulary Item 1 EA (Cholecalciferol (Vitamin D3) [Vitamin D3] 1 TAB) PO SCH (08:44)
[2017-12-03] MEDS: FOLIC ACID PO SCH (08:44)
[2017-12-03] MEDS: Levofloxacin 500mg/100mL 500 MG/100 ML BAG IV SCH (13:37)
--- NOTE | 2017-12-03 15:12 | Operative Report ---
DATE OF SURGERY: 12/03/2017 PROCEDURE: 1. Esophagogastroduodenoscopy with biopsy. 2. Colonoscopy. PREOPERATIVE DIAGNOSES: 1. Weight loss. 2. Change in bowel habits. POSTPROCEDURE DIAGNOSES: 1. Upper endoscopy showing mild antral and mid body gastritis with mild retained bilious fluid status post biopsy and CLOtest; normal duodenum, status post biopsies to rule out celiac disease. 2. Colonoscopy showing normal examination upto the cecum. INDICATIONS: A 72-year-old female with unintentional weight loss and change in bowel habits undergoing an upper endoscopy and colonoscopy for further evaluation. CONSENT: Informed consent was obtained from the patient prior to procedure after detailed explanation of risks, benefits, and alternatives including but not limited to infection, bleeding, perforation, and . SEDATION: Monitored anesthesia care per Dr. Ventura. DESCRIPTION OF PROCEDURE AND FINDINGS: The procedure took place as an inpatient in the GI suite of [facility]. The patient was kept in a lithotomy position. Adequate sedation was achieved by Dr. Ventura. Initially, an upper endoscopy was performed followed by colonoscopy. An Olympus diagnostic upper endoscope was advanced via the patient's mouth and into the esophagus. The esophagus appeared normal with no evidence of esophagitis, stricture, or mass lesions. The Z line was normal appearing at 40 cm from the gums. Retroflexion of the stomach revealed no GE junction mass or varices. No hiatal hernia was identified. There was a mild to moderate amount of mid body and antral gastritis with a mild amount of retained bilious appearing fluid in the body and fundus. This was suctioned clear. Biopsy obtained from antrum and mid body submitted for CLOtest as well as pathology. The pyloric channel and duodenum up to second portion appeared normal. Random biopsies were obtained from second portion to rule out celiac disease. Scope was then withdrawn from the patient. The patient was then repositioned and colonoscopy performed. Rectal examination revealed normal sphincter tone with no rectal masses. An Olympus pediatric colonoscope was advanced via the patient's anus and into the rectum with ease; it was advanced up to the cecum, which was visualized by landmarks of the ileocecal valve and appendiceal orifice. The quality of the preparation was fair. The scope was slowly withdrawn and underlying colonic mucosa examined in greater detail. The approximate scope withdrawal time from cecum to anus was about 8 minutes. No polyps, masses, colitis or angiectasias were identified. Retroflexion was unable to be performed in the rectum due to a lax anal sphincter tone and inability of the patient to hold on to air in the rectum. The scope was then withdrawn. The patient tolerated the procedure well and no complications are anticipated. RECOMMENDATIONS: 1. Follow biopsy results. 2. Antacids. 3. Diet as tolerated. 4. Disposition as per hospitalist. Thank you, Dr. Veronica Diaz for involving us in the care of your patient. If you have any further questions, please call us. JOB# [id number] MTDD
[2017-12-03] MEDS ORDERED: Insulin Detemir 100 units/mL 10mL Vial SUBQ SCH (17:00)
--- NOTE | 2017-12-04 16:33 | Pathology Report ---
[id number] Collection Date: 12/02/2017 Surgeon: Dr. Kin Cedeno Specimen Description: 1. Duodenum biopsy 2. Antrum biopsy Gross Description: Part I: Received in formalin are two ferris soft tissue fragments, ranging from 0.1 to 0.2 cm in greatest dimension. Totally submitted in one cassette labeled A. Gross Description: Part II: Received in formalin are two ferris soft tissue fragments, ranging from 0.1 to 0.2 cm in greatest dimension. Totally submitted in one cassette labeled B. Microscopic Description: Part I: The histologic sections show duodenal mucosa with intact intestinal villi present, showing no evidence for villous abnormality. Diagnosis: Part I: No evidence for celiac disease/sprue. Microscopic Description: Part II: The histologic sections show gastric mucosa with mild chronic inflammation present consisting of lymphocytes and plasma cells. The Giemsa stain shows no evidence for Helicobacter pylori. Diagnosis: Part II: 1. Mild chronic gastritis, antrum biopsy. 2. The Giemsa stain is negative for Helicobacter pylori. [facility]# [id number] [facility]
== END 2017-12-03 14:57 | DRG 682 ==
LOC: ER 19:08 → TELE 21:45 → UNDODISIN 12-01 17:37
PROVIDERS: ADMIT Internal Medicine; ATTEND Internal Medicine
PROC: 0DB68ZX Excision of Stomach, Via Natural or Artificial Opening Endoscopic, Diagnostic (ICD-10-PCS; principal; 2017-12-03)
PROC: 0DJD8ZZ Inspection of Lower Intestinal Tract, Via Natural or Artificial Opening Endoscopic (ICD-10-PCS; 2017-12-03)
DX: N17.0 Acute kidney failure with tubular necrosis (principal); J18.9 Pneumonia, unspecified organism; Z68.1 Body mass index [BMI] 19.9 or less, adult; J44.0 Chronic obstructive pulmonary disease with (acute) lower respiratory infection; R64 Cachexia; E44.0 Moderate protein-calorie malnutrition; K59.00 Constipation, unspecified; R62.7 Adult failure to thrive; Z85.118 Personal history of other malignant neoplasm of bronchus and lung; N18.2 Chronic kidney disease, stage 2 (mild); Z85.3 Personal history of malignant neoplasm of breast; Z92.3 Personal history of irradiation; E86.0 Dehydration; Z88.6 Allergy status to analgesic agent; Z88.0 Allergy status to penicillin; Z83.3 Family history of diabetes mellitus; E11.22 Type 2 diabetes mellitus with diabetic chronic kidney disease
CPT/HCPCS: 36415-UA; 70450-TC; 71045-TC; 71250-TC; 80048-TC; 80053-TC; 80061-TC; 82378-90; 82948-90; 83036-90; 85007-TC; 85025-TC; 85027-TC; 87070; 87338-TC; 90779; 93005; 94640; 94760; J1815; J1956; J2001; J2704; J2930; Z7610

== ENCOUNTER 2017-12-29 00:47 | Inpatient (IN) | payer MEDICARE, MEDICAID ==
[2017-12-29] MEDS ORDERED: Levofloxacin 500mg/100mL 500 MG/100 ML BAG IV SCH (04:45)
[2017-12-29 05:42] LABS: HEMATOCRIT 24.5 % (41.0-60); HEMOGLOBIN 8.2 gm/dL (12-16); LYMPHOCYTE ABSOLUTE 0.1 Th/cmm (1.5-3.0); MEAN CELL VOLUME 89.7 fl (81-100); MEAN CORPUSCULAR HGB CONC 33.5 pg (28.0-36.0); MEAN PLATELET VOLUME 7.7 fl; MONOCYTE ABSOLUTE 0.4 Th/cmm (0.3-1.0); NEUTROPHILE ABSOLUTE 20.7 Th/cmm (1.8-8.0); PLATELET COUNT 197 Th/cmm (150-400); RED BLOOD COUNT 2.73 Mil/cmm (3.80-5.20); RED CELL DISTRIBUTION WIDTH 15.9 % (11.5-20.0)
[2017-12-29 05:50] LABS: WHITE BLOOD COUNT 21.2 Th/cmm (4.8-10.8)
[2017-12-29] MEDS ORDERED: Levofloxacin 500mg/100mL 500 MG/100 ML BAG IV ONE (06:12)
[2017-12-29 06:19] LABS: ALB/GLOB RATIO 1.1 (1.0-1.8); ALBUMIN 2.4 gm/dL (3.7-5.3); ALKALINE PHOSPHATASE 113 U/L (34-104); ANION GAP 19.5 (7.0-16.0); BILIRUBIN,TOTAL 0.4 mg/dL (0.3-1.0); CALCIUM SERUM 6.9 mg/dL (8.6-10.3); CARBON DIOXIDE 10.1 mEq/L (21.0-31.0); CHLORIDE 105 mEq/L (98-107); CHOLESTEROL 29 mg/dL (<200); CREATININE - SERUM 2.6 mg/dL (0.6-1.2); GFR AFRICAN-AMERICAN 23.4 ml/min (>90); GFR NON AFRICAN-AMERICAN 19.3 ml/min; GLUCOSE 184 mg/dL (70-105); HDL -HIGH DENSITY LIPOPROTEIN 13 mg/dL (23-92); POTASSIUM SERUM 4.6 mEq/L (3.5-5.1); SGOT 29 U/L (13-39); SGPT/ALT 25 U/L (7-52); SODIUM SERUM 130 mEq/L (136-145); TOTAL PROTEIN,SERUM 4.5 gm/dL (6.0-8.3); TRIGLYCERIDES 45 mg/dL (<150)
[2017-12-29 06:40] LABS: BAND NEUTROPHILE 4 % (0-10); BASOPHIL 0 % (0-3); EOSINOPHIL 0 % (0-5); LYMPHOCYTE 9 % (20-50); MONOCYTE 3 % (2-10); NEUTROPHILS 84 % (40-80); PLATELET ESTIMATE ADEQUATE (NORMAL); PLATELET MORPHOLOGY NORMAL (NORMAL)
[2017-12-29 06:50] LABS: BUN - UREA NITROGEN 110 mg/dL (7-25)
[2017-12-29] MEDS: methylPREDNISolone SS 40 mg Vial IVP SCH ×3 (06:59→19:04)
[2017-12-29] MEDS ORDERED: Ipratropium Neb 0.5 mg/2.5 mL UD HHN SCH (07:00)
[2017-12-29] MEDS: Levofloxacin 500mg/100mL 500 MG/100 ML BAG IV SCH (08:07)
[2017-12-29] MEDS ORDERED: Albuterol/Ipratropium Neb 3 ML AERS HHN PRN ×3 (08:16→23:45)
[2017-12-29] MEDS ORDERED: Albuterol/Ipratropium Neb 3 ML AERS HHN SCH (08:30)
[2017-12-29] MEDS ORDERED: Sodium Bicarbonate 8.4% 50mEq PFS IVP ONE ×2 (11:36→14:44)
[2017-12-29] MEDS: Albuterol/Ipratropium Neb 3 ML AERS HHN SCH ×4 (12:09→22:37)
[2017-12-29 12:31] LABS: pH 7.12 (7.35-7.45)
[2017-12-29] MEDS ORDERED: Norepinephrine 4 mg/4mL Vial IV ONE (13:13)
[2017-12-29] MEDS: INSULIN ASPART SLIDING SCALE 100 UNITS/ML UNIT SUBQ SCH ×3 (14:06→23:52)
[2017-12-29 14:21] LABS: ALLEN TEST Positive
[2017-12-29 14:22] LABS: pH 7.09 (7.35-7.45)
[2017-12-29] MEDS ORDERED: Calcium Gluconate 1 GM in Sodium Chloride 0.9% 100 ML IV ONE (16:07)
[2017-12-29 18:02] LABS: pH 7.21 (7.35-7.45)
--- NOTE | 2017-12-29 18:10 | Consultation ---
DATE OF CONSULTATION: 12/29/2017 DATE OF SERVICE: 12/29/[address] Diaz. HISTORY AND PHYSICAL: This is a 72-year-old female patient who had been complaining of shortness of breath. Following this, the patient came to the Emergency Room at [facility]. The patient was stabilized and transferred to [facility] due to insurance reason. The patient was on telemetry bed where the patient gradually deteriorated. At this time, the patient was intubated and transferred to ICU. The patient is hypotensive, on Levophed and hence cardiac consult is requested. PAST MEDICAL HISTORY: Acute respiratory failure, pulmonary fibrosis, COPD, CA of the lung with radiation and chemotherapy, CA of the breast; intraductal with surgery, diabetes mellitus type 2, hypotension, major depression, hyperlipidemia, osteoporosis, diabetic CKD stage III. FAMILY HISTORY: Unremarkable. SOCIAL HISTORY: The patient has no history of smoking at the present time. ALLERGIES: None. PHYSICAL EXAMINATION: VITAL SIGNS: Blood pressure 100 systolic; on Levophed, pulse 98, respiration on ventilator. HEAD: Normocephalic. No lumps or bumps. EYES: Pupils equal, reactive to light. Fundi show AV nicking, sclerae white, conjunctivae pink. NECK: Carotid 2+. Normal upstroke. JVD flat. Thyroid not palpable. Lymph nodes not palpable. CHEST: Shows increased AP diameter. No kyphosis or scoliosis. LUNGS: Bilateral wheezing, rhonchi, prolonged expiration. HEART: PMI fifth intercostal space with [id number] line. S1, S2, S3, S4, soft systolic murmur. ABDOMEN: Soft. Liver, spleen not palpable. No organomegaly. Bowel sounds active. NEUROLOGIC: Unremarkable. EXTREMITIES: Peripheral pulses 2+. No pedal edema. LABORATORY DATA: The patient's BNP level is 4796. CLINICAL IMPRESSION: Acute respiratory failure; on ventilator, congestive heart failure, diastolic dysfunction; acute, CA of the lung with radiation and chemotherapy, CA of the breast, diabetes mellitus type 2, diabetic CKD stage III, hypotension; on Levophed, major depression, hyperlipidemia, chronic obstructive pulmonary disease with acute exacerbation, and osteoporosis. PLAN: The patient to continue on Levophed. We will get echocardiogram, troponin level and monitor the patient. JOB# [id number]
[2017-12-29] MEDS: Chlorhexidine Gluconate 0.12% 15mL Mouthwash MM SCH (20:00)
--- NOTE | 2017-12-29 20:34 | Consultation ---
DATE OF CONSULTATION: 12/29/[address] Diaz for this consultation. HISTORY OF PRESENT ILLNESS: This is an unfortunate 72-year-old female with history of COPD, lung cancer, breast cancer status post radiation and chemo. The patient presented from halfway with respiratory distress, hypotension. ABG showed severe metabolic acidosis, required to be intubated, bicarbonate was given, ventilator support was initiated. Followup ABG shows some improvement, but continues to have severe metabolic acidosis and the rate of the ventilator was increased and was given more bicarb, is on a bicarb drip. The patient appears to be comfortable, more responsive, blood pressure is reasonable, but still on Levophed drips. PAST MEDICAL HISTORY: As above. SOCIAL HISTORY: Remote history of smoking. REVIEW OF SYSTEMS: Unable to obtain because of the patient's condition. PHYSICAL EXAMINATION: GENERAL: The patient is intubated and sedated. VITAL SIGNS: T-max 99.0, temperature 96.6, pulse is 108, respiration is 26, blood pressure is 93/55, saturation is 98%. HEENT: Atraumatic, normocephalic. Pupils are equal and reactive to light and accommodation. Ears, nose and throat are normal. NECK: Supple. No JVD. CHEST: There are good breath sounds, few rhonchi. HEART: Regular rate and rhythm. ABDOMEN: Soft. LOWER EXTREMITIES: No edema. LABORATORY DATA: WBC is 21.2, hemoglobin 8.2, hematocrit 24.5, platelets is 197. ABGs: pH , pCO2 of 45, pO2 108, bicarbonate 12, saturation 96%. Sodium 130, potassium 4.6, BUN is 110, creatinine 2.6. BNP is 2290. Chest x-ray is not able to review, but apparently ET tube in place. IMPRESSION: This is a 72-year-old female with, 1. Respiratory failure. 2. Chronic obstructive pulmonary disease. 3. History of lung cancer. 4. Severe metabolic acidosis. PLAN: 1. Follow up ABGs post ventilator changes. 2. Bicarb. 3. IV fluids. 4. Nebulizer treatment. Poor prognosis overall. Follow the patient with you. Thank you very much for this consultation. JOB# [id number]
--- NOTE | 2017-12-29 20:48 | Consultation ---
DATE OF CONSULTATION: 12/29/2017 ATTENDING PHYSICIAN: Dr. Fabio Diaz. PUNCHBOARD INSERTER: Dr. Padilla Woodward. REASON FOR CONSULTATION: Worsening kidney function, electrolyte imbalance, and fluid management. HISTORY OF PRESENT ILLNESS: This is a 72-year-old female with past medical history of chronic kidney disease, who was transferred from [facility] to [facility] for further care. The patient was seen at [facility] last night because of respiratory distress. She was in septic shock. She received boluses of IV fluids. Her white count was 25.2 with a lactic acid of 3.2. A chest x-ray showed airspace disease with chronic interstitial disease and possible pulmonary nodules. She was started on Solu-Medrol and placed on BiPAP. She was also initiated on vancomycin as well as Zosyn. She had a BUN/creatinine of 104/2.8 at [place]. She has a history of CKD. The patient developed respiratory distress while in the [facility]. She required emergency intubation. Her white count today was 21.2. Her BUN/creatinine were 110/2.6 with a sodium of 130 and CO2 of 10. BNP level was 2290. PAST MEDICAL HISTORY: 1. Chronic kidney disease and last creatinine was 1.5 in November. 2. Type 2 diabetes mellitus. 3. COPD. 4. Failure to thrive. 5. Intraductal CA of the breast. 6. Lung CA status post radiation. Cancer was found to be in remission based on a PET scan last done 6 months ago. 7. Anemia of chronic disease. CURRENT MEDICATIONS: She is currently on albuterol, chlorhexidine, furosemide, aspart, ipratropium, levofloxacin, methylprednisolone, sodium bicarbonate, vancomycin. ALLERGIES: ALLERGIC TO HYDROCODONE, MORPHINE WELL PENICILLIN. SOCIAL AND FAMILY HISTORY: Unable to obtain social and family history because she is currently intubated. REVIEW OF SYSTEMS: Again, I was not able to decipher from the patient because of the same reason. PHYSICAL EXAMINATION: GENERAL: The patient is cachectic, very stuporous on a ventilator. VITAL SIGNS: Blood pressure is 125/90, pulse is 110, temperature 96.6 degrees. SKIN: Very poor turgor, warm, extensive ecchymosis and hematomas involving upper extremities as well as her lower extremities. HEENT: Head normocephalic, atraumatic. Eyes: Unable to assess her extraocular muscles. Pupils are equal, round, reactive to light and accommodates. Anicteric sclerae. Pale conjunctivae. Nose, midline nasal septum. Mouth, very dry mucosa, poor dentition. NECK: Supple, no adenopathy, no thyromegaly, no bruits. Trachea palpated in the midline. CHEST AND CARDIOVASCULAR: S1, S2 tachycardic. No rub, murmur, nor gallop appreciated. Point of maximal impulse fifth intercostal space, left midclavicular line. No abdominal or femoral bruits appreciated. LUNGS: Equal expansion, no use of accessory muscles. No supraclavicular retractions. Scattered rhonchi, but no rales nor wheezes appreciated. BREASTS: Symmetrical, without any discharge. ABDOMEN: Flat, soft. Positive for bowel sounds. No bruits either diastolic or systolic. RECTAL: Deferred. GENITOURINARY: Normal appearing female genitalia with indwelling Galvan catheter. MUSCULOSKELETAL: No effusions present in her joints, unable to assess her range of motion. EXTREMITIES: No evidence of edema, cyanosis nor clubbing, she has toes, also severe muscular atrophy involving lower extremities. NEUROLOGIC: As mentioned, the patient is stuporous, so unable to pursue my neuro exam. LABORATORY DATA: Labs did reveal sodium is 130, potassium 4.6, chloride 105, bicarbonate 10, BUN 110, creatinine 2.6, glucose 184, calcium 6.9. BNP of 2290, albumin of 2.4. TSH 0.99. White count 21.2, hemoglobin 8.2, hematocrit 24.5, platelets 197, polys 84%. IMPRESSION: 1. Acute kidney injury on chronic kidney disease stage 4. The patient's chronic kidney disease is secondary to longstanding history of diabetes giving rise to diabetic nephropathy. Acute kidney injury in this case is initially prerenal in nature. The patient has several days of very poor oral intake with failure to thrive. She was not able to replenish her fluid losses, both are sensible and insensible. She eventually developed septic shock causing a decrease in effective circulating volume. This was supported by poor skin turgor, dry oral mucosa and almost concentrated urine. Her prerenal azotemia progressed to acute tubular injury. She also has overwhelming sepsis causing septic shock and may have developed acute interstitial nephritis. 2. Acute on chronic respiratory failure, now on a ventilator secondary to chronic obstructive pulmonary disease exacerbation, possible worsening of healthcare-acquired pneumonia as well as recurrence of lung cancer. 3. Failure to thrive. 4. Severe malnutrition. 5. Shock, septic in nature. 6. Sepsis, more likely secondary to pneumonia. 7. Anemia of chronic disease. 8. Hyponatremia likely due to hypovolemia with increased sodium loss compared to free water loss. 9. Anion gap metabolic acidosis with non-gap acidosis based on delta-delta secondary to lactic acidosis, but the patient also has history of starvation which could lead to elevation of ketones 10. Type 2 diabetes mellitus. 11. Failure to thrive. 12. Intraductal cancer of breast. 13. Lung carcinoma status post radiation. 14. Anemia of chronic kidney disease. PLAN: 1. Urinalysis. 2. Urine spot sodium, eosinophils, and creatinine. 3. Urine microalbumin to creatinine ratio. 4. Renal ultrasound. 5. Pressors. 6. Serial chest x-ray. 7. Serum osmolarity, ketones, and uric acid. 8. Continue bicarbonate. Thank you, Dr. Diaz, for this consult. We will follow the patient closely with you. JOB# [id number]
[2017-12-29] MEDS ORDERED: Guaifenesin DM 10 ML UDC PO PRN (23:45)
[2017-12-29] MEDS ORDERED: PATIROMER CALCIUM SORBITEX 8.4 GM PO SCH (23:45)
[2017-12-30] MEDS ORDERED: INSULIN ASPART SLIDING SCALE 100 UNITS/ML UNIT SUBQ SCH
--- NOTE | 2017-12-30 01:31 | Consultation ---
DATE OF CONSULTATION: 12/29/2017 INFECTIOUS DISEASE CONSULTATION REFERRING PHYSICIAN: Dr. Diaz. REASON FOR CONSULTATION: Sepsis, pneumonia. HISTORY OF PRESENT ILLNESS: The patient is a 72-year-old female with a past medical history of CHF, CKD with a creatinine of 1.5, diabetes mellitus type 2, protein-calorie malnutrition, COPD, failure to thrive, intraductal CA of the breast, lung CA, status post radiation and chemotherapy, anemia of chronic disease was brought to the [facility] ER from the nursing facility for shortness of breath and cough. Chest x-ray from nursing facility suggested pneumonia. On initial evaluation, her temperature was 99.4 degrees Fahrenheit and WBC count was 25,200 with neutrophil 79.8%. At the [facility], levofloxacin was started. At the [place], vancomycin and Zosyn were given and she was transferred to [facility] for insurance purposes. Besides this, the patient's lactic acid was also elevated around 3. ALLERGIES: THE PATIENT DOCUMENTED ALLERGIC TO HYDROCODONE, MORPHINE AND PENICILLIN; HOWEVER, THE PATIENT HAS TOLERATED ZOSYN WITHOUT ANY DIFFICULTY. PAST MEDICAL HISTORY: Includes CKD, stage 2 with creatinine 1.5 in November, now it has gone up to 2.6, diabetes mellitus type 2, COPD, failure to thrive, intraductal CA of the breast, lung CA, status post radiation and chemotherapy, anemia of chronic disease and dementia. MEDICATIONS: As per medication reconciliation sheet. Antibiotic eryes, the patient is receiving vancomycin and Levaquin. SOCIAL HISTORY: The patient lives in a nursing facility. No history of smoking, alcohol or drug use at this time. REVIEW OF SYSTEMS: Unable to obtain, but as per documentation, the patient had developed fever now. FAMILY HISTORY: Not available. PHYSICAL EXAMINATION: GENERAL: The patient is cachectic, intubated orally, on the ventilator support. VITAL SIGNS: Shows temperature is 100.9 degrees Fahrenheit, pulse 107, respiration is 33, blood pressure is 77/47. Currently, the patient is receiving Levophed now. HEENT: Head is normocephalic, atraumatic. Oral cavity moist, pink tongue. Eyes: Pallor is present, no icterus. PERRLA, EOMI. NECK: Supple, no JVD, no carotid bruit. Trachea midline. CHEST: Bilateral breath sounds. Crackles present. HEART: S1, S2 within normal limits. Regular rhythm. No murmur, no gallop. ABDOMEN: Soft, nontender, nondistended. Bowel sounds present. Scaphoid. EXTREMITIES: No cyanosis, no clubbing, no edema. NEUROLOGIC: Sedated and unable to communicate. SKIN: The patient has ecchymosis in both upper and lower extremities. Sacral area, stage 1 ulceration, no open wound. EXTREMITIES: The patient's toes are cyanotic. LABORATORY DATA: Lab reyes, current lab shows WBC count 21,200, hemoglobin is 8.2, hematocrit 24.5, platelets are 197,000, neutrophils 84%, bands are 4%. Sodium is 130, potassium 4.6, chloride 105, bicarbonate is 10.1, BUN is 110, creatinine 2.6, glucose is 184. ABG shows pH 7.21, pCO2 of 39, pO2 82, bicarbonate 15.8, oxygen saturation 93% on 60% FiO2. Vancomycin random level was 12. IMPRESSION: 1. Severe sepsis and septic shock. The patient is on Levophed at this time. 2. Pneumonia. 3. Ventilator-dependent respiratory failure. 4. Protein-calorie malnutrition. 5. Metabolic acidosis secondary to sepsis. 6. Chronic obstructive pulmonary disease. 7. Diabetes mellitus type 2. 8. History of breast cancer. 9. Lung cancer. 10. Anemia of chronic disease. 11. Acute renal failure on chronic renal failure. RECOMMENDATIONS: We will give fluid resuscitation, Levophed and antibiotic reyes, continue vancomycin and start Azactam and continue Levaquin. We will get chest x-ray, urinalysis, and urine culture. The patient's condition is critical and prognosis is guarded to poor. Thank you, Dr. Diaz for involving me in taking care of this patient. JOB# [id number]
[2017-12-30] MEDS: Albuterol/Ipratropium Neb 3 ML AERS HHN SCH ×6 (02:41→23:26)
[2017-12-30 06:34] LABS: INR 1.99 (0.5-1.4); PROTHROMBIN TIME (TEST) 21.4 SECONDS (9.5-11.5)
[2017-12-30 06:35] LABS: EOSINOPHILE ABSOLUTE 0.4 Th/cmm (0.1-0.4); HEMATOCRIT 23.7 % (41.0-60); LYMPHOCYTE ABSOLUTE 0.3 Th/cmm (1.5-3.0); MEAN CELL VOLUME 90.1 fl (81-100); MEAN CORPUSCULAR HEMOGLOBIN 30.4 pg (27.0-31.0); MEAN CORPUSCULAR HGB CONC 33.7 pg (28.0-36.0); MEAN PLATELET VOLUME 7.9 fl; MONOCYTE ABSOLUTE 0.3 Th/cmm (0.3-1.0); NEUTROPHILE ABSOLUTE 21.8 Th/cmm (1.8-8.0); PLATELET COUNT 180 Th/cmm (150-400); RED BLOOD COUNT 2.63 Mil/cmm (3.80-5.20); RED CELL DISTRIBUTION WIDTH 16.1 % (11.5-20.0)
[2017-12-30] MEDS: INSULIN ASPART SLIDING SCALE 100 UNITS/ML UNIT SUBQ SCH ×4 (06:35→23:51)
[2017-12-30] MEDS: methylPREDNISolone SS 40 mg Vial IVP SCH ×5 (06:35→23:52)
[2017-12-30 06:38] LABS: ALB/GLOB RATIO 1.2 (1.0-1.8); ALBUMIN 2.3 gm/dL (3.7-5.3); ALKALINE PHOSPHATASE 196 U/L (34-104); ANION GAP 23.3 (7.0-16.0); BILIRUBIN,TOTAL 0.9 mg/dL (0.3-1.0); CARBON DIOXIDE 16.2 mEq/L (21.0-31.0); CHLORIDE 101 mEq/L (98-107); CREATININE - SERUM 3.1 mg/dL (0.6-1.2); GFR AFRICAN-AMERICAN 19.1 ml/min (>90); GFR NON AFRICAN-AMERICAN 15.8 ml/min; GLUCOSE 225 mg/dL (70-105); PHOSPHOROUS 8.4 mg/dL (2.5-5.0); POTASSIUM SERUM 5.5 mEq/L (3.5-5.1); SGOT 1601 U/L (13-39); SGPT/ALT 376 U/L (7-52); SODIUM SERUM 135 mEq/L (136-145); TOTAL PROTEIN,SERUM 4.3 gm/dL (6.0-8.3); URIC ACID 14.8 mg/dL (2.3-6.6)
[2017-12-30 06:44] LABS: WHITE BLOOD COUNT 22.8 Th/cmm (4.8-10.8)
[2017-12-30 07:05] LABS: BAND NEUTROPHILE 5 % (0-10); LYMPHOCYTE 2 % (20-50); MONOCYTE 1 % (2-10); NEUTROPHILS 92 % (40-80)
[2017-12-30 07:18] LABS: BUN - UREA NITROGEN 109 mg/dL (7-25); CALCIUM SERUM 5.8 mg/dL (8.6-10.3)
[2017-12-30] MEDS ORDERED: Sodium Bicarbonate 8.4% 50mEq PFS IVP ONE (08:20)
[2017-12-30] MEDS ORDERED: Calcium Gluconate 3 GM in Sodium Chloride 0.9% 100 ML IV ONE (08:26)
--- NOTE | 2017-12-30 08:43 | Diagnostic Imaging Report ---
Portable chest x-ray HISTORY: Shortness of breath, endotracheal tube placement The heart appears somewhat enlarged. Infiltrate noted in the right perihilar region. Changes consistent with pneumonia. An endotracheal tube tip is at the level the clavicles approximately 5.0 cm above the harjeet. A nasogastric tube is at the level of the diaphragm. This should be advanced approximately 8-10 cm. IMPRESSION: 1. Right perihilar infiltrate consistent with pneumonia 2. Endotracheal and nasogastric tube placements as noted above
[2017-12-30] MEDS: Acetaminophen 500 MG TAB PO SCH ×2 (08:47→16:11)
[2017-12-30] MEDS ORDERED: Multivitamin Tab PO SCH (09:00)
[2017-12-30] MEDS ORDERED: CYANOCOBALAMIN PO SCH (09:00)
[2017-12-30] MEDS ORDERED: Aspirin 81mg Chewable Tab PO SCH (09:00)
[2017-12-30] MEDS ORDERED: Nicotine 21 mg/24 hr Tdm TD SCH (09:00)
[2017-12-30] MEDS ORDERED: Non-Formulary Item 1 EA (Cholecalciferol (Vitamin D3) [Vitamin D3] 1 TAB) PO SCH (09:00)
[2017-12-30] MEDS ORDERED: FOLIC ACID PO SCH (09:00)
[2017-12-30] MEDS ORDERED: [UNRECOGNIZED DRUG - OTHER] PO SCH (09:00)
--- NOTE | 2017-12-30 09:02 | Diagnostic Imaging Report ---
Portable chest x-ray HISTORY: Shortness of breath Compared with prior exam of 12/29/2017, persistent infiltrate noted in the right perihilar and right lower lobe region. There has developed somewhat more conspicuous infiltrate in the left perihilar area. An endotracheal tube tip is approximately 5.0 cm above the harjeet. Compared with the prior study of 12/29/2017, nasogastric tube has been advanced further into the region of the gastric lumen. IMPRESSION: 1. Bilateral pulmonary infiltrates 2. Repositioned nasogastric tube extending into the gastric lumen
[2017-12-30] MEDS: Levofloxacin 500mg/100mL 500 MG/100 ML BAG IV SCH (09:17)
[2017-12-30] MEDS: Chlorhexidine Gluconate 0.12% 15mL Mouthwash MM SCH (09:22)
[2017-12-30 09:24] LABS: pH 7.35 (7.35-7.45)
[2017-12-30 09:25] LABS: ALLEN TEST Positive
[2017-12-30 09:55] LABS: EOSINOPHIL SMEAR SOURCE URINE; EOSINOPHILS SMEAR COUNT NONE SEEN (NONE SEEN)
[2017-12-30 11:49] VITALS: BP 103/39
--- NOTE | 2017-12-30 13:36 | Diagnostic Imaging Report ---
Renal ultrasound HISTORY: Renal failure. COMPARISON: CT chest on 12/02/2017 Technique: Sonography of the kidneys and urinary bladder was performed in multiple planes. FINDINGS: The right kidney measures 8.3 x 4.1 cm demonstrating multiple cysts the largest measuring 1.4 cm. No hydronephrosis. The left kidney measures 9.4 x 4.2 cm. There is a 5 mm echogenic focus of the left kidney. No hydronephrosis. There is increased echogenicity of both kidneys. Small right effusion is noted. Small left effusion versus small amount of abdominal ascites is noted. Galvan catheter is noted within collapsed urinary bladder. IMPRESSION: Increased echogenicity of both kidneys which may be due to underlying medical renal disease. Right renal cysts. Left renal 5 mm echogenic focus which may represent renal sinus fat versus a nonobstructive stone. Right pleural effusion noted. Small left effusion versus small amount of ascites.
--- NOTE | 2017-12-30 13:37 | Diagnostic Imaging Report ---
Bilateral lower extremity DVT study HISTORY: Pain COMPARISON: None Technique: Longitudinal and transverse sonographic images of the bilateral lower extremity veins were obtained with doppler analysis. FINDINGS: There is normal compressibility, augmentation and phasicity of the bilateral common femoral, superficial femoral, popliteal, and posterior tibial veins. No thrombus is visualized. Few dilated vessels are seen throughout with what appear to be vessel valves. IMPRESSION: No evidence of thrombus within the bilateral lower extremity veins. Few dilated vessels with what appear be valves. The significance of this finding should be correlated clinically.
--- NOTE | 2017-12-30 13:39 | Diagnostic Imaging Report ---
Bilateral lower extremity arterial Doppler study HISTORY: mottling of toes COMPARISON: None Technique: Longitudinal and transverse sonographic images of the bilateral lower extremity arteries were obtained with doppler analysis. FINDINGS: Exam of the right side demonstrates severe atherosclerotic vascular disease with diffuse calcified plaque formation and monophasic waveforms seen throughout the right lower extremity. The right dorsalis pedis artery was not visualized. Exam of the left side demonstrates moderate to severe atherosclerotic vascular disease primarily distally with monophasic flow seen within the left popliteal, tibialis anterior, and tibialis posterior arteries. The left dorsalis pedis artery was not visualized. ABIs were not able to be obtained after multiple attempts. IMPRESSION: Severe atherosclerotic vascular disease, right greater than left. The bilateral dorsalis pedis arteries were not able to be visualized. Please correlate with clinical findings. If indicated CT angiography of the lower extremities may be optimal for further assessment.
--- NOTE | 2017-12-30 14:04 | General Progress Note ---
Subjective - Review of Systems Service Date: 12/30/17 Subjective: obtunded, on vent Objective - Results Result Diagrams: 12/30/17 06:06 12/30/17 06:06 Recent Labs: Laboratory Last Values WBC 22.8 Th/cmm (4.8-10.8) H* 12/30/17 06:06 RBC 2.63 Mil/cmm (3.80-5.20) L 12/30/17 06:06 Hgb 8.0 gm/dL (12-16) L 12/30/17 06:06 Hct 23.7 % (41.0-60) L 12/30/17 06:06 MCV 90.1 fl (81-100) 12/30/17 06:06 MCH 30.4 pg (27.0-31.0) 12/30/17 06:06 MCHC Differential 33.7 pg (28.0-36.0) 12/30/17 06:06 RDW 16.1 % (11.5-20.0) 12/30/17 06:06 Plt Count 180 Th/cmm (150-400) 12/30/17 06:06 MPV 7.9 fl 12/30/17 06:06 Add Manual Diff YES 12/30/17 06:06 Band Neutrophils % 5 % (0-10) 12/30/17 06:06 Neutrophils (Manual) 92 % (40-80) H 12/30/17 06:06 Lymphocytes 2 % (20-50) L 12/30/17 06:06 Monocytes 1 % (2-10) L 12/30/17 06:06 Eosinophils 0 % (0-5) 12/29/17 05:30 Basophils 0 % (0-3) 12/29/17 05:30 Platelet Estimate ADEQUATE (NORMAL) 12/29/17 05:30 Platelet Morphology NORMAL (NORMAL) 12/29/17 05:30 RBC Morph Micro Appear NORMAL (NORMAL) 12/29/17 05:30 Eos Smear Source URINE 12/30/17 07:45 Eos Smear Total Cells NONE SEEN (NONE SEEN) 12/30/17 07:45 PT 21.4 SECONDS (9.5-11.5) H 12/30/17 06:06 INR 1.99 (0.5-1.4) H 12/30/17 06:06 PTT (Actin FS) 49.2 SECONDS (26.0-38.0) H 12/30/17 06:06 Specimen Source Arterial 12/30/17 09:10 Sample Site Left Radial 12/30/17 09:10 pH 7.35 (7.35-7.45) 12/30/17 09:10 pCO2 35.0 mmHg (35.0-45.0) 12/30/17 09:10 pO2 117.0 mmHg (80.0-100.0) H 12/30/17 09:10 HCO3 20.6 mEq/L (20.0-26.0) 12/30/17 09:10 Base Excess -5.6 mEq/L (-3.0-3.0) L 12/30/17 09:10 O2 Saturation 98.0 % (92.0-100.0) 12/30/17 09:10 Cirilo Test Positive 12/30/17 09:10 Vent Rate 26 12/30/17 09:10 Inspired O2 60 12/30/17 09:10 Tidal Volume 450 12/30/17 09:10 PEEP 5 12/30/17 09:10 Pressure (ins/psv/peep) N/A 12/30/17 09:10 Critical Value DM 12/30/17 09:10 Sodium 135 mEq/L (136-145) L 12/30/17 06:06 Potassium 5.5 mEq/L (3.5-5.1) H 12/30/17 06:06 Chloride 101 mEq/L (98-107) 12/30/17 06:06 Carbon Dioxide 16.2 mEq/L (21.0-31.0) L 12/30/17 06:06 Anion Gap 23.3 (7.0-16.0) H 12/30/17 06:06 BUN 109 mg/dL (7-25) H* 12/30/17 06:06 Creatinine 3.1 mg/dL (0.6-1.2) H 12/30/17 06:06 Est GFR ( Amer) 19.1 ml/min (>90) 12/30/17 06:06 Est GFR (Non-Af Amer) 15.8 ml/min 12/30/17 06:06 BUN/Creatinine Ratio 35.2 12/30/17 06:06 Glucose 225 mg/dL (70-105) H 12/30/17 06:06 POC Glucose 301 MG/DL (70 - 105) H 12/30/17 12:03 Whole Bld Lactic Acid 4.26 mmol/L (0.60-1.99) H* 12/30/17 08:06 Uric Acid 14.8 mg/dL (2.3-6.6) H 12/30/17 06:06 Calcium 5.8 mg/dL (8.6-10.3) L* 12/30/17 06:06 Phosphorus 8.4 mg/dL (2.5-5.0) H 12/30/17 06:06 Magnesium 2.0 mg/dL (1.9-2.7) 12/30/17 06:06 Total Bilirubin 0.9 mg/dL (0.3-1.0) 12/30/17 06:06 AST 1601 U/L (13-39) H 12/30/17 06:06 ALT 376 U/L (7-52) H 12/30/17 06:06 Alkaline Phosphatase 196 U/L (34-104) H 12/30/17 06:06 B-Natriuretic Peptide 1710.0 pg/mL (5.0-100.0) H 12/30/17 06:06 Total Protein 4.3 gm/dL (6.0-8.3) L 12/30/17 06:06 Albumin 2.3 gm/dL (3.7-5.3) L 12/30/17 06:06 Globulin 2.0 gm/dL 12/30/17 06:06 Albumin/Globulin Ratio 1.2 (1.0-1.8) 12/30/17 06:06 Triglycerides 45 mg/dL (<150) 12/29/17 05:30 Cholesterol 29 mg/dL (<200) 12/29/17 05:30 LDL Cholesterol Direct < 7 mg/dL (75-193) L 12/29/17 05:30 HDL Cholesterol 13 mg/dL (23-92) L 12/29/17 05:30 TSH 0.99 uIU/ml (0.34-5.60) 12/29/17 05:30 Ur Random Sodium 16 mmol/L 12/30/17 07:45 Urine Creatinine 13.0 mg/dl (28.0-217.0) L 12/30/17 07:45 Random Vancomycin 21.1 ug/mL (5.0-40.0) 12/30/17 06:06 Serum Ketones SMALL (NEGATIVE) H 12/30/17 06:06 - Physical Exam Vitals and I&O: Vital Signs Temp 101.2 F 12/30/17 12:00 Pulse 108 12/30/17 13:50 Resp 29 12/30/17 12:00 BP 113/48 12/30/17 12:45 Pulse Ox 94 12/30/17 13:50 Intake & Output 12/29/17 12/30/17 12/30/17 18:59 06:59 18:59 Intake Total 8.382 761.932 354 Output Total 50 Balance 8.382 711.932 354 Weight (lbs) 51.71 kg 62.46 kg Intake: Intake, IV Amount 8.382 521.932 354 Aztreonam 0.5 gm In 50 Dextrose 5% 50 ml @ 100 mls/hr IV Q8HR [facility] Rx#: [id number] Calcium Gluconate 3 gm In 0 Sodium Chloride 0.9% 100 ml @ 33 mls/hr IV X1 [facility] Rx#:[id number] Levofloxacin 500mg/100mL 100 500 mg In 100 ml @ 100 mls/hr IV Q24H [facility] Rx#: [id number] Norepinephrine 4 mg In 8.382 471.932 254 Dextrose 5% 250 ml @ 22.5 MCG/MIN 85.72 mls/hr IV TITR PRN Rx#:[id number] Tube Feeding 210 Other 30 Output: Urine 50 Other: # Voids 50 # Bowel Movements 0 Weight Source Bedscale Bedscale Active Medications: Current Medications Acetaminophen (Tylenol) 650 mg PO Q6H PRN PRN Reason: Pain (Mild) Stop: 02/27/18 23:44 Last Admin: 12/30/17 12:09 Dose: 650 mg Acetaminophen (Tylenol Extra Strength) 1,000 mg PO BID [facility] Stop: 02/28/18 08:59 Last Admin: 12/30/17 08:47 Dose: Not Given Albuterol/Ipratropium (Duoneb Neb) 3 ml HHN Q4HRT [facility] Stop: 02/28/18 02:59 Last Admin: 12/30/17 11:21 Dose: 3 ml Albuterol/Ipratropium (Duoneb Neb) 3 ml HHN [id number] PRN PRN Reason: Shortness of Breath Stop: 02/27/18 23:44 Aspirin (Aspirin Chewable) 81 mg PO DAILY [facility] Stop: 02/28/18 08:59 Last Admin: 12/30/17 09:18 Dose: 81 mg Atorvastatin Calcium (Lipitor) 80 mg PO QPM [facility]; Protocol Stop: 02/28/18 16:59 Chlorhexidine Gluconate (Peridex) 15 ml MM 0800,1999 [facility] Stop: 02/27/18 19:59 Last Admin: 12/30/17 09:22 Dose: 15 ml Fluticasone Propionate (Flonase) 1 spr NS QPM [facility] Stop: 02/28/18 16:59 Guaifenesin/Dextromethorphan (Robitussin Dm) 10 ml PO DAILY PRN PRN Reason: Cough Stop: 02/27/18 23:44 Levofloxacin (Levaquin Pb) 500 mg in 100 mls @ 100 mls/hr IV Q24H [facility] Stop: 02/27/18 08:59 Last Infusion: 12/30/17 10:20 Dose: Infused Norepinephrine Bitartrate 4 mg (/ Dextrose) 254 mls @ 85.72 mls/hr IV TITR PRN ; Protocol PRN Reason: BP MAINTENANCE (PER PROTOCOL) Stop: 02/27/18 12:54 Last Admin: 12/30/17 09:11 Dose: 13 mcg/min, 49.53 mls/hr Sodium Bicarbonate 100 meq/ (Sodium Chloride) 1,100 mls @ 125 mls/hr IV .Q8H48M [facility] Stop: 03/01/18 00:59 Last Admin: 12/30/17 13:24 Dose: 125 mls/hr Aztreonam 0.5 gm/ Dextrose 50 mls @ 100 mls/hr IV Q8HR [facility] Stop: 02/28/18 04:59 Last Admin: 12/30/17 13:23 Dose: 100 mls/hr Vancomycin HCl 1 gm/ Sodium (Chloride) 250 mls @ 165 mls/hr IV 1800 ONE Stop: 12/30/17 19:30 Insulin Aspart (Novolog Insulin Sliding Scale) 0 units SUBQ Q6HR [facility]; Protocol Stop: 02/27/18 11:59 Last Admin: 12/30/17 12:08 Dose: 8 units Insulin Detemir (Levemir Insulin) 15 units SUBQ QPM [facility]; Protocol Stop: 02/28/18 16:59 Lorazepam (Ativan) 1 mg IVP Q4HR PRN; Protocol PRN Reason: Agitation Stop: 02/27/18 18:19 Methylprednisolone Sodium Succinate (Solu-Medrol) 60 mg IVP Q6HR [facility] Stop: 02/27/18 05:59 Last Admin: 12/30/17 12:07 Dose: 60 mg Miscellaneous (Vancomycin Iv Per Pharmacy) 1 ea PRN PRN PRN Reason: PROTOCOL Stop: 02/27/18 01:53 Miscellaneous (Cholecalciferol (Vitamin D3) [Vitamin D3]) 1 tab PO DAILY [facility] Stop: 02/28/18 08:59 Miscellaneous (Cyanocobalamin/Folic Acid [Vitamin N05-Xipox Acid Tablet]) 1 each PO DAILY [facility] Stop: 02/28/18 08:59 Miscellaneous (Patiromer Calcium Sorbitex [Veltassa]) 8.4 gm PO 2XW [facility] Stop: 02/27/18 23:44 Miscellaneous (Tiotropium Beaver [Spiriva]) 18 mcg INH QPM [facility] Stop: 02/28/18 16:59 Montelukast Sodium (Singulair) 10 mg PO QPM [facility] Stop: 02/28/18 16:59 Multivitamins/Vitamin C (Theragran) 1 tab PO DAILY [facility] Stop: 02/28/18 08:59 Last Admin: 12/30/17 09:18 Dose: 1 tab Nicotine (Nicotine Transdermal System) 21 mg TD DAILY [facility] Stop: 02/28/18 08:59 Last Admin: 12/30/17 09:20 Dose: 21 mg Pantoprazole Sodium (Protonix) 40 mg IVP DAILY [facility] Stop: 02/28/18 08:59 Last Admin: 12/30/17 09:18 Dose: 40 mg Sodium Chloride (Saline Flush) 10 ml IV QSHIFT [facility] Stop: 02/27/18 07:59 Last Admin: 12/30/17 09:22 Dose: 10 ml Venlafaxine HCl (Effexor) 37.5 mg PO DAILY [facility]; Protocol Stop: 02/28/18 08:59 Last Admin: 12/30/17 08:47 Dose: Not Given General: Moderate distress HEENT: Atraumatic, Mucous membr. moist/pink Neck: Supple, +2 carotid pulse wo bruit Cardiovascular: Regular rate, Normal S1, Normal S2 Lungs: Other (few rhonchi, no rales) Abdomen: Bowel sounds, Soft Extremities: no Edema Neurological: no Sensation intact Skin: Other (ecchymosis, hematomas) - Procedures Procedures: Procedures Procedure Code Date EXCISION OF STOMACH, ENDO, DIAGN [id number] 11/29/17 INDIVID PSYCHOTHERAP NEC 94.39 06/14/05 INSPECTION OF LOWER INTESTINAL TRACT, ENDO [id number] 11/29/17 OTHER GROUP THERAPY 94.44 06/14/05 RECREATIONAL THERAPY 93.81 06/14/05 RESPIRATORY VENTILATION, LESS THAN 24 CONSECUTIVE HOURS [id number] 12/29/17 Assessment/Plan - Assessment Assessment: UZIEL on CKD Acute on Chronic Resp Failure on Vent Shock Septic Sepsis B/L HAP Anemia of CD A gap met acid on non gap acid T2DM Lung CA Shock liver Severe Electrolyte Imbalance - Plan Plan: Lab - Result Diagrams 12/30/17 06:06 12/30/17 06:06 Current Medications Acetaminophen (Tylenol) 650 mg PO Q6H PRN PRN Reason: Pain (Mild) Stop: 02/27/18 23:44 Last Admin: 12/30/17 12:09 Dose: 650 mg Acetaminophen (Tylenol Extra Strength) 1,000 mg PO BID [facility] Stop: 02/28/18 08:59 Last Admin: 12/30/17 08:47 Dose: Not Given Albuterol/Ipratropium (Duoneb Neb) 3 ml HHN Q4HRT [facility] Stop: 02/28/18 02:59 Last Admin: 12/30/17 11:21 Dose: 3 ml Albuterol/Ipratropium (Duoneb Neb) 3 ml HHN [id number] PRN PRN Reason: Shortness of Breath Stop: 02/27/18 23:44 Aspirin (Aspirin Chewable) 81 mg PO DAILY [facility] Stop: 02/28/18 08:59 Last Admin: 12/30/17 09:18 Dose: 81 mg Atorvastatin Calcium (Lipitor) 80 mg PO QPM [facility]; Protocol Stop: 02/28/18 16:59 Chlorhexidine Gluconate (Peridex) 15 ml MM 0800,1999 [facility] Stop: 02/27/18 19:59 Last Admin: 12/30/17 09:22 Dose: 15 ml Fluticasone Propionate (Flonase) 1 spr NS QPM [facility] Stop: 02/28/18 16:59 Guaifenesin/Dextromethorphan (Robitussin Dm) 10 ml PO DAILY PRN PRN Reason: Cough Stop: 02/27/18 23:44 Levofloxacin (Levaquin Pb) 500 mg in 100 mls @ 100 mls/hr IV Q24H [facility] Stop: 02/27/18 08:59 Last Infusion: 12/30/17 10:20 Dose: Infused Norepinephrine Bitartrate 4 mg (/ Dextrose) 254 mls @ 85.72 mls/hr IV TITR PRN ; Protocol PRN Reason: BP MAINTENANCE (PER PROTOCOL) Stop: 02/27/18 12:54 Last Admin: 12/30/17 09:11 Dose: 13 mcg/min, 49.53 mls/hr Sodium Bicarbonate 100 meq/ (Sodium Chloride) 1,100 mls @ 125 mls/hr IV .Q8H48M [facility] Stop: 03/01/18 00:59 Last Admin: 12/30/17 13:24 Dose: 125 mls/hr Aztreonam 0.5 gm/ Dextrose 50 mls @ 100 mls/hr IV Q8HR [facility] Stop: 02/28/18 04:59 Last Admin: 12/30/17 13:23 Dose: 100 mls/hr Vancomycin HCl 1 gm/ Sodium (Chloride) 250 mls @ 165 mls/hr IV 1800 ONE Stop: 12/30/17 19:30 Insulin Aspart (Novolog Insulin Sliding Scale) 0 units SUBQ Q6HR [facility]; Protocol Stop: 02/27/18 11:59 Last Admin: 12/30/17 12:08 Dose: 8 units Insulin Detemir (Levemir Insulin) 15 units SUBQ QPM [facility]; Protocol Stop: 02/28/18 16:59 Lorazepam (Ativan) 1 mg IVP Q4HR PRN; Protocol PRN Reason: Agitation Stop: 02/27/18 18:19 Methylprednisolone Sodium Succinate (Solu-Medrol) 60 mg IVP Q6HR [facility] Stop: 02/27/18 05:59 Last Admin: 12/30/17 12:07 Dose: 60 mg Miscellaneous (Vancomycin Iv Per Pharmacy) 1 ea MC PRN PRN PRN Reason: PROTOCOL Stop: 02/27/18 01:53 Miscellaneous (Cholecalciferol (Vitamin D3) [Vitamin D3]) 1 tab PO DAILY [facility] Stop: 02/28/18 08:59 Miscellaneous (Cyanocobalamin/Folic Acid [Vitamin Z51-Vcaee Acid Tablet]) 1 each PO DAILY [facility] Stop: 02/28/18 08:59 Miscellaneous (Patiromer Calcium Sorbitex [Veltassa]) 8.4 gm PO 2XW [facility] Stop: 02/27/18 23:44 Miscellaneous (Tiotropium Beaver [Spiriva]) 18 mcg INH QPM [facility] Stop: 02/28/18 16:59 Montelukast Sodium (Singulair) 10 mg PO QPM [facility] Stop: 02/28/18 16:59 Multivitamins/Vitamin C (Theragran) 1 tab PO DAILY [facility] Stop: 02/28/18 08:59 Last Admin: 12/30/17 09:18 Dose: 1 tab Nicotine (Nicotine Transdermal System) 21 mg TD DAILY [facility] Stop: 02/28/18 08:59 Last Admin: 12/30/17 09:20 Dose: 21 mg Pantoprazole Sodium (Protonix) 40 mg IVP DAILY [facility] Stop: 02/28/18 08:59 Last Admin: 12/30/17 09:18 Dose: 40 mg Sodium Chloride (Saline Flush) 10 ml IV QSHIFT [facility] Stop: 02/27/18 07:59 Last Admin: 12/30/17 09:22 Dose: 10 ml Venlafaxine HCl (Effexor) 37.5 mg PO DAILY [facility]; Protocol Stop: 02/28/18 08:59 Last Admin: 12/30/17 08:47 Dose: Not Given Lab - Result Diagrams 12/30/17 06:06 12/30/17 06:06 Kidney fnc worse start Kayexalate continue NaHC03 Add Ca gluconate On Levo 13 mcg/min discussed w/ family indications for dialysis & poor clinical status family will discuss code status CXR suggestive of B/L HAP right > left On Azactam & Levofloxacin
--- NOTE | 2017-12-30 15:06 | General Progress Note ---
Subjective - Review of Systems Service Date: 12/30/17 Events since last encounter: on vent lethargic Subjective: acute renal failure respiratory failure on vent cardiomypathy h/o chf pvd h/o cancer s/o chemo s/p radiation family decied to make her comfort only to extubate pt. Objective - Results Result Diagrams: 12/30/17 06:06 12/30/17 06:06 Recent Labs: Laboratory Last Values WBC 22.8 Th/cmm (4.8-10.8) H* 12/30/17 06:06 RBC 2.63 Mil/cmm (3.80-5.20) L 12/30/17 06:06 Hgb 8.0 gm/dL (12-16) L 12/30/17 06:06 Hct 23.7 % (41.0-60) L 12/30/17 06:06 MCV 90.1 fl (81-100) 12/30/17 06:06 MCH 30.4 pg (27.0-31.0) 12/30/17 06:06 MCHC Differential 33.7 pg (28.0-36.0) 12/30/17 06:06 RDW 16.1 % (11.5-20.0) 12/30/17 06:06 Plt Count 180 Th/cmm (150-400) 12/30/17 06:06 MPV 7.9 fl 12/30/17 06:06 Add Manual Diff YES 12/30/17 06:06 Band Neutrophils % 5 % (0-10) 12/30/17 06:06 Neutrophils (Manual) 92 % (40-80) H 12/30/17 06:06 Lymphocytes 2 % (20-50) L 12/30/17 06:06 Monocytes 1 % (2-10) L 12/30/17 06:06 Eosinophils 0 % (0-5) 12/29/17 05:30 Basophils 0 % (0-3) 12/29/17 05:30 Platelet Estimate ADEQUATE (NORMAL) 12/29/17 05:30 Platelet Morphology NORMAL (NORMAL) 12/29/17 05:30 RBC Morph Micro Appear NORMAL (NORMAL) 12/29/17 05:30 Eos Smear Source URINE 12/30/17 07:45 Eos Smear Total Cells NONE SEEN (NONE SEEN) 12/30/17 07:45 PT 21.4 SECONDS (9.5-11.5) H 12/30/17 06:06 INR 1.99 (0.5-1.4) H 12/30/17 06:06 PTT (Actin FS) 49.2 SECONDS (26.0-38.0) H 12/30/17 06:06 Specimen Source Arterial 12/30/17 09:10 Sample Site Left Radial 12/30/17 09:10 pH 7.35 (7.35-7.45) 12/30/17 09:10 pCO2 35.0 mmHg (35.0-45.0) 12/30/17 09:10 pO2 117.0 mmHg (80.0-100.0) H 12/30/17 09:10 HCO3 20.6 mEq/L (20.0-26.0) 12/30/17 09:10 Base Excess -5.6 mEq/L (-3.0-3.0) L 12/30/17 09:10 O2 Saturation 98.0 % (92.0-100.0) 12/30/17 09:10 Cirilo Test Positive 12/30/17 09:10 Vent Rate 26 12/30/17 09:10 Inspired O2 60 12/30/17 09:10 Tidal Volume 450 12/30/17 09:10 PEEP 5 12/30/17 09:10 Pressure (ins/psv/peep) N/A 12/30/17 09:10 Critical Value DM 12/30/17 09:10 Sodium 135 mEq/L (136-145) L 12/30/17 06:06 Potassium 5.5 mEq/L (3.5-5.1) H 12/30/17 06:06 Chloride 101 mEq/L (98-107) 12/30/17 06:06 Carbon Dioxide 16.2 mEq/L (21.0-31.0) L 12/30/17 06:06 Anion Gap 23.3 (7.0-16.0) H 12/30/17 06:06 BUN 109 mg/dL (7-25) H* 12/30/17 06:06 Creatinine 3.1 mg/dL (0.6-1.2) H 12/30/17 06:06 Est GFR ( Amer) 19.1 ml/min (>90) 12/30/17 06:06 Est GFR (Non-Af Amer) 15.8 ml/min 12/30/17 06:06 BUN/Creatinine Ratio 35.2 12/30/17 06:06 Glucose 225 mg/dL (70-105) H 12/30/17 06:06 POC Glucose 301 MG/DL (70 - 105) H 12/30/17 12:03 Whole Bld Lactic Acid 4.26 mmol/L (0.60-1.99) H* 12/30/17 08:06 Uric Acid 14.8 mg/dL (2.3-6.6) H 12/30/17 06:06 Calcium 5.8 mg/dL (8.6-10.3) L* 12/30/17 06:06 Phosphorus 8.4 mg/dL (2.5-5.0) H 12/30/17 06:06 Magnesium 2.0 mg/dL (1.9-2.7) 12/30/17 06:06 Total Bilirubin 0.9 mg/dL (0.3-1.0) 12/30/17 06:06 AST 1601 U/L (13-39) H 12/30/17 06:06 ALT 376 U/L (7-52) H 12/30/17 06:06 Alkaline Phosphatase 196 U/L (34-104) H 12/30/17 06:06 B-Natriuretic Peptide 1710.0 pg/mL (5.0-100.0) H 12/30/17 06:06 Total Protein 4.3 gm/dL (6.0-8.3) L 12/30/17 06:06 Albumin 2.3 gm/dL (3.7-5.3) L 12/30/17 06:06 Globulin 2.0 gm/dL 12/30/17 06:06 Albumin/Globulin Ratio 1.2 (1.0-1.8) 12/30/17 06:06 Triglycerides 45 mg/dL (<150) 12/29/17 05:30 Cholesterol 29 mg/dL (<200) 12/29/17 05:30 LDL Cholesterol Direct < 7 mg/dL (75-193) L 12/29/17 05:30 HDL Cholesterol 13 mg/dL (23-92) L 12/29/17 05:30 TSH 0.99 uIU/ml (0.34-5.60) 12/29/17 05:30 Ur Random Sodium 16 mmol/L 12/30/17 07:45 Urine Creatinine 13.0 mg/dl (28.0-217.0) L 12/30/17 07:45 Random Vancomycin 21.1 ug/mL (5.0-40.0) 12/30/17 06:06 Serum Ketones SMALL (NEGATIVE) H 12/30/17 06:06 - Physical Exam Vitals and I&O: Vital Signs Temp 101.2 F 12/30/17 12:00 Pulse 102 12/30/17 15:00 Resp 29 12/30/17 15:00 BP 121/58 12/30/17 15:00 Pulse Ox 94 12/30/17 15:00 Intake & Output 12/29/17 12/30/17 12/30/17 18:59 06:59 18:59 Intake Total 8.382 761.932 404 Output Total 50 Balance 8.382 711.932 404 Weight (lbs) 51.71 kg 62.46 kg Intake: Intake, IV Amount 8.382 521.932 404 Aztreonam 0.5 gm In 50 50 Dextrose 5% 50 ml @ 100 mls/hr IV Q8HR [facility] Rx#: [id number] Calcium Gluconate 3 gm In 0 Sodium Chloride 0.9% 100 ml @ 33 mls/hr IV X1 [facility] Rx#:[id number] Levofloxacin 500mg/100mL 100 500 mg In 100 ml @ 100 mls/hr IV Q24H [facility] Rx#: [id number] Norepinephrine 4 mg In 8.382 471.932 254 Dextrose 5% 250 ml @ 22.5 MCG/MIN 85.72 mls/hr IV TITR PRN Rx#:[id number] Tube Feeding 210 Other 30 Output: Urine 50 Other: # Voids 50 # Bowel Movements 0 Weight Source Bedscale Bedscale Active Medications: Current Medications Acetaminophen (Tylenol) 650 mg PO Q6H PRN PRN Reason: Pain (Mild) Stop: 02/27/18 23:44 Last Admin: 12/30/17 12:09 Dose: 650 mg Acetaminophen (Tylenol Extra Strength) 1,000 mg PO BID [facility] Stop: 02/28/18 08:59 Last Admin: 12/30/17 08:47 Dose: Not Given Albuterol/Ipratropium (Duoneb Neb) 3 ml HHN Q4HRT [facility] Stop: 02/28/18 02:59 Last Admin: 12/30/17 11:21 Dose: 3 ml Albuterol/Ipratropium (Duoneb Neb) 3 ml HHN [id number] PRN PRN Reason: Shortness of Breath Stop: 02/27/18 23:44 Aspirin (Aspirin Chewable) 81 mg PO DAILY [facility] Stop: 02/28/18 08:59 Last Admin: 12/30/17 09:18 Dose: 81 mg Atorvastatin Calcium (Lipitor) 80 mg PO QPM [facility]; Protocol Stop: 02/28/18 16:59 Chlorhexidine Gluconate (Peridex) 15 ml MM 0800,1999 [facility] Stop: 02/27/18 19:59 Last Admin: 12/30/17 09:22 Dose: 15 ml Fluticasone Propionate (Flonase) 1 spr NS QPM [facility] Stop: 02/28/18 16:59 Guaifenesin/Dextromethorphan (Robitussin Dm) 10 ml PO DAILY PRN PRN Reason: Cough Stop: 02/27/18 23:44 Levofloxacin (Levaquin Pb) 500 mg in 100 mls @ 100 mls/hr IV Q24H ANGELA Stop: 02/27/18 08:59 Last Infusion: 12/30/17 10:20 Dose: Infused Norepinephrine Bitartrate 4 mg (/ Dextrose) 254 mls @ 85.72 mls/hr IV TITR PRN ; Protocol PRN Reason: BP MAINTENANCE (PER PROTOCOL) Stop: 02/27/18 12:54 Last Admin: 12/30/17 09:11 Dose: 13 mcg/min, 49.53 mls/hr Sodium Bicarbonate 100 meq/ (Sodium Chloride) 1,100 mls @ 125 mls/hr IV .[id number] [facility] Stop: 03/01/18 00:59 Last Admin: 12/30/17 13:24 Dose: 125 mls/hr Aztreonam 0.5 gm/ Dextrose 50 mls @ 100 mls/hr IV Q8HR ANGELA Stop: 02/28/18 04:59 Last Infusion: 12/30/17 14:00 Dose: Infused Vancomycin HCl 1 gm/ Sodium (Chloride) 250 mls @ 165 mls/hr IV 1800 ONE Stop: 12/30/17 19:30 Insulin Aspart (Novolog Insulin Sliding Scale) 0 units SUBQ Q6HR ANGELA; Protocol Stop: 02/27/18 11:59 Last Admin: 12/30/17 12:08 Dose: 8 units Insulin Detemir (Levemir Insulin) 15 units SUBQ QPM ANGELA; Protocol Stop: 02/28/18 16:59 Lorazepam (Ativan) 1 mg IVP Q4HR PRN; Protocol PRN Reason: Agitation Stop: 02/27/18 18:19 Methylprednisolone Sodium Succinate (Solu-Medrol) 60 mg IVP Q6HR ANGELA Stop: 02/27/18 05:59 Last Admin: 12/30/17 12:07 Dose: 60 mg Miscellaneous (Vancomycin Iv Per Pharmacy) 1 ea PRN PRN PRN Reason: PROTOCOL Stop: 02/27/18 01:53 Miscellaneous (Cholecalciferol (Vitamin D3) [Vitamin D3]) 1 tab PO DAILY ANGELA Stop: 02/28/18 08:59 Miscellaneous (Cyanocobalamin/Folic Acid [Vitamin E63-Vfsvv Acid Tablet]) 1 each PO DAILY ANGELA Stop: 02/28/18 08:59 Miscellaneous (Patiromer Calcium Sorbitex [Veltassa]) 8.4 gm PO 2XW ANGELA Stop: 02/27/18 23:44 Miscellaneous (Tiotropium [place] [Spiriva]) 18 mcg INH QPM ANGELA Stop: 02/28/18 16:59 Montelukast Sodium (Singulair) 10 mg PO QPM ANGELA Stop: 02/28/18 16:59 Multivitamins/Vitamin C (Theragran) 1 tab PO DAILY ANGELA Stop: 02/28/18 08:59 Last Admin: 12/30/17 09:18 Dose: 1 tab Nicotine (Nicotine Transdermal System) 21 mg TD DAILY ANGELA Stop: 02/28/18 08:59 Last Admin: 12/30/17 09:20 Dose: 21 mg Pantoprazole Sodium (Protonix) 40 mg IVP DAILY ANGELA Stop: 02/28/18 08:59 Last Admin: 12/30/17 09:18 Dose: 40 mg Sodium Chloride (Saline Flush) 10 ml IV QSHIFT ANGELA Stop: 02/27/18 07:59 Last Admin: 12/30/17 09:22 Dose: 10 ml Venlafaxine HCl (Effexor) 37.5 mg PO DAILY [facility]; Protocol Stop: 02/28/18 08:59 Last Admin: 12/30/17 08:47 Dose: Not Given General: Moderate distress HEENT: Atraumatic, Mucous membr. moist/pink Neck: Supple, +2 carotid pulse wo bruit Cardiovascular: Regular rate, Normal S1, Normal S2 Lungs: Other (few rhonchi, no rales) Abdomen: Bowel sounds, Soft Extremities: no Edema Neurological: no Sensation intact Skin: Other (ecchymosis, hematomas) - Procedures Procedures: Procedures Procedure Code Date EXCISION OF STOMACH, ENDO, DIAGN [id number] 11/29/17 INDIVID PSYCHOTHERAP NEC 94.39 06/14/05 INSPECTION OF LOWER INTESTINAL TRACT, ENDO [id number] 11/29/17 OTHER GROUP THERAPY 94.44 06/14/05 RECREATIONAL THERAPY 93.81 06/14/05 RESPIRATORY VENTILATION, LESS THAN 24 CONSECUTIVE HOURS [id number] 12/29/17
[2017-12-30] MEDS ORDERED: Fluticasone Propionate 0.05mg/Actuation 16gm Nasal Spray NS SCH (17:00)
[2017-12-30] MEDS ORDERED: Insulin Detemir 100 units/mL 10mL Vial SUBQ SCH (17:00)
[2017-12-30] MEDS ORDERED: Non-Formulary Item 1 EA (Tiotropium Bromide [Spiriva] 18 MCG) INH SCH (17:00)
[2017-12-30] MEDS: HYDROmorphone 1 mg/mL 1mL Syr IVP PRN ×2 (19:46→22:59)
[2017-12-30 20:47] LABS: A1C % 6.1 % (4.0-6.0)
--- NOTE | 2017-12-30 21:52 | History & Physical ---
ADMIT DATE: 12/29/2017 HISTORY OF PRESENT ILLNESS: The patient was admitted on 12/29/2017, transferred from [facility]. The patient is well known to me from previous admission. The patient is known to have history of lung cancer, history of COPD, status post radiation and chemo. The patient was in the [facility]. The patient became in respiratory distress and hypotension and called 911. The patient was sent to [facility]. The patient was transferred over here. The patient showed severe acidosis and the patient apparently had to be intubated when he came in here and the bicarbonate was given and Dr. Woodward as well as Dr. Martin was called for consultation. When I saw her last night the patient was a little more responsive than before. The patient on Levophed drips. PAST MEDICAL HISTORY: History of lung cancer, history of COPD, history of breast cancer, history of chemoradiation and history of cardiomyopathy, history of congestive heart failure, history of severe peripheral vascular disease. REVIEW OF SYSTEMS: Short of breath and the patient was having more swelling over the right both the lower extremities. The patient was being intubated and sedated, actually she was little bit more awake. PHYSICAL EXAMINATION: HEAD: Normal. ENT: Normal. NECK: Supple, nontender. LUNGS: Clear. Bilateral rhonchi. CARDIOVASCULAR SYSTEM: S1, S2 heard. ABDOMEN: Soft. LABORATORY DATA: White count was high at 21.2, hemoglobin was low 8.2, BUN and creatinine were high, bicarbonate was low. DIAGNOSES: Severe respiratory failure, status post intubation, history of breast cancer, history of lung cancer status post chemo, status post radiation, severe acidosis, acute renal failure, severe peripheral vascular disease and she has cardiomyopathy. I will call the consultants including Cardiology, Nephrology, and the Pulmonary doctor. I will follow the patient tomorrow and I will discuss the family regarding the poor prognosis. JOB# [id number]
--- NOTE | 2017-12-30 23:44 | Infectious Disease Prog Note ---
Infectious Disease Subjective - Review of Systems Service Date: 12/30/17 Subjective: Patient was terminally extubated. Infectious Disease Objective - Results Result Diagrams: 12/30/17 06:06 12/30/17 06:06 Recent Labs: Laboratory Last Values WBC 22.8 Th/cmm (4.8-10.8) H* 12/30/17 06:06 RBC 2.63 Mil/cmm (3.80-5.20) L 12/30/17 06:06 Hgb 8.0 gm/dL (12-16) L 12/30/17 06:06 Hct 23.7 % (41.0-60) L 12/30/17 06:06 MCV 90.1 fl (81-100) 12/30/17 06:06 MCH 30.4 pg (27.0-31.0) 12/30/17 06:06 MCHC Differential 33.7 pg (28.0-36.0) 12/30/17 06:06 RDW 16.1 % (11.5-20.0) 12/30/17 06:06 Plt Count 180 Th/cmm (150-400) 12/30/17 06:06 MPV 7.9 fl 12/30/17 06:06 Add Manual Diff YES 12/30/17 06:06 Band Neutrophils % 5 % (0-10) 12/30/17 06:06 Neutrophils (Manual) 92 % (40-80) H 12/30/17 06:06 Lymphocytes 2 % (20-50) L 12/30/17 06:06 Monocytes 1 % (2-10) L 12/30/17 06:06 Eosinophils 0 % (0-5) 12/29/17 05:30 Basophils 0 % (0-3) 12/29/17 05:30 Platelet Estimate ADEQUATE (NORMAL) 12/29/17 05:30 Platelet Morphology NORMAL (NORMAL) 12/29/17 05:30 RBC Morph Micro Appear NORMAL (NORMAL) 12/29/17 05:30 Eos Smear Source URINE 12/30/17 07:45 Eos Smear Total Cells NONE SEEN (NONE SEEN) 12/30/17 07:45 PT 21.4 SECONDS (9.5-11.5) H 12/30/17 06:06 INR 1.99 (0.5-1.4) H 12/30/17 06:06 PTT (Actin FS) 49.2 SECONDS (26.0-38.0) H 12/30/17 06:06 Specimen Source Arterial 12/30/17 09:10 Sample Site Left Radial 12/30/17 09:10 pH 7.35 (7.35-7.45) 12/30/17 09:10 pCO2 35.0 mmHg (35.0-45.0) 12/30/17 09:10 pO2 117.0 mmHg (80.0-100.0) H 12/30/17 09:10 HCO3 20.6 mEq/L (20.0-26.0) 12/30/17 09:10 Base Excess -5.6 mEq/L (-3.0-3.0) L 12/30/17 09:10 O2 Saturation 98.0 % (92.0-100.0) 12/30/17 09:10 Cirilo Test Positive 12/30/17 09:10 Vent Rate 26 12/30/17 09:10 Inspired O2 60 12/30/17 09:10 Tidal Volume 450 12/30/17 09:10 PEEP 5 12/30/17 09:10 Pressure (ins/psv/peep) N/A 12/30/17 09:10 Critical Value DM 12/30/17 09:10 Sodium 135 mEq/L (136-145) L 12/30/17 06:06 Potassium 5.5 mEq/L (3.5-5.1) H 12/30/17 06:06 Chloride 101 mEq/L (98-107) 12/30/17 06:06 Carbon Dioxide 16.2 mEq/L (21.0-31.0) L 12/30/17 06:06 Anion Gap 23.3 (7.0-16.0) H 12/30/17 06:06 BUN 109 mg/dL (7-25) H* 12/30/17 06:06 Creatinine 3.1 mg/dL (0.6-1.2) H 12/30/17 06:06 Est GFR ( Amer) 19.1 ml/min (>90) 12/30/17 06:06 Est GFR (Non-Af Amer) 15.8 ml/min 12/30/17 06:06 BUN/Creatinine Ratio 35.2 12/30/17 06:06 Glucose 225 mg/dL (70-105) H 12/30/17 06:06 POC Glucose 352 MG/DL (70 - 105) H 12/30/17 18:13 Hemoglobin A1c % 6.1 % (4.0-6.0) H 12/30/17 06:06 Whole Bld Lactic Acid 4.26 mmol/L (0.60-1.99) H* 12/30/17 08:06 Uric Acid 14.8 mg/dL (2.3-6.6) H 12/30/17 06:06 Calcium 5.8 mg/dL (8.6-10.3) L* 12/30/17 06:06 Phosphorus 8.4 mg/dL (2.5-5.0) H 12/30/17 06:06 Magnesium 2.0 mg/dL (1.9-2.7) 12/30/17 06:06 Total Bilirubin 0.9 mg/dL (0.3-1.0) 12/30/17 06:06 AST 1601 U/L (13-39) H 12/30/17 06:06 ALT 376 U/L (7-52) H 12/30/17 06:06 Alkaline Phosphatase 196 U/L (34-104) H 12/30/17 06:06 B-Natriuretic Peptide 1710.0 pg/mL (5.0-100.0) H 12/30/17 06:06 Total Protein 4.3 gm/dL (6.0-8.3) L 12/30/17 06:06 Albumin 2.3 gm/dL (3.7-5.3) L 12/30/17 06:06 Globulin 2.0 gm/dL 12/30/17 06:06 Albumin/Globulin Ratio 1.2 (1.0-1.8) 12/30/17 06:06 Triglycerides 45 mg/dL (<150) 12/29/17 05:30 Cholesterol 29 mg/dL (<200) 12/29/17 05:30 LDL Cholesterol Direct < 7 mg/dL (75-193) L 12/29/17 05:30 HDL Cholesterol 13 mg/dL (23-92) L 12/29/17 05:30 TSH 0.99 uIU/ml (0.34-5.60) 12/29/17 05:30 Ur Random Sodium 16 mmol/L 12/30/17 07:45 Urine Creatinine 13.0 mg/dl (28.0-217.0) L 12/30/17 07:45 Random Vancomycin 21.1 ug/mL (5.0-40.0) 12/30/17 06:06 Serum Ketones SMALL (NEGATIVE) H 12/30/17 06:06 - Physical Exam Vitals and I&O: Vital Signs Temp 98.2 F 12/30/17 20:00 Pulse 85 12/30/17 23:30 Resp 28 12/30/17 23:30 BP 72/38 12/30/17 23:00 Pulse Ox 100 12/30/17 23:30 Intake & Output 12/30/17 12/30/17 12/31/17 06:59 18:59 06:59 Intake Total 412.763 3132.255 1150 Output Total 50 20 Balance 817.624 8492.255 1150 Weight (lbs) 62.46 kg 62.596 kg Intake: Intake, IV Amount 521.932 032.093 0521 Aztreonam 0.5 gm In 50 50 50 Dextrose 5% 50 ml @ 100 mls/hr IV Q8HR [facility] Rx#: [id number] Calcium Gluconate 3 gm In 0 Sodium Chloride 0.9% 100 ml @ 33 mls/hr IV X1 ONE Rx#:[id number] Levofloxacin 500mg/100mL 100 500 mg In 100 ml @ 100 mls/hr IV Q24H [facility] Rx#: [id number] Norepinephrine 4 mg In 471.932 546.255 Dextrose 5% 250 ml @ 22.5 MCG/MIN 85.72 mls/hr IV TITR PRN Rx#:[id number] Sodium Bicarbonate 8.4% 1100 100 meq In Sodium Chloride 0.45% 1,000 ml @ 125 mls/hr IV .Q8H48M [facility] Rx#:[id number] Tube Feeding 210 360 Other 30 60 Output: Urine 50 20 Other: # Bowel Movements 0 0 Weight Source Bedscale Bedscale Active Medications: Current Medications Acetaminophen (Tylenol) 650 mg PO Q6H PRN PRN Reason: Pain (Mild) Stop: 02/27/18 23:44 Last Admin: 12/30/17 12:09 Dose: 650 mg Acetaminophen (Tylenol Extra Strength) 1,000 mg PO BID [facility] Stop: 02/28/18 08:59 Last Admin: 12/30/17 16:11 Dose: Not Given Albuterol/Ipratropium (Duoneb Neb) 3 ml HHN Q4HRT [facility] Stop: 02/28/18 02:59 Last Admin: 12/30/17 23:26 Dose: 3 ml Albuterol/Ipratropium (Duoneb Neb) 3 ml HHN [id number] PRN PRN Reason: Shortness of Breath Stop: 02/27/18 23:44 Aspirin (Aspirin Chewable) 81 mg PO DAILY [facility] Stop: 02/28/18 08:59 Last Admin: 12/30/17 09:18 Dose: 81 mg Atorvastatin Calcium (Lipitor) 80 mg PO HS [facility]; Protocol Stop: 02/28/18 20:59 Last Admin: 12/30/17 21:10 Dose: 80 mg Fluticasone Propionate (Flonase) 1 spr NS QPM [facility] Stop: 02/28/18 16:59 Last Admin: 12/30/17 18:20 Dose: Not Given Guaifenesin/Dextromethorphan (Robitussin Dm) 10 ml PO DAILY PRN PRN Reason: Cough Stop: 02/27/18 23:44 Hydromorphone HCl (Dilaudid) 1 mg IVP Q2HR PRN PRN Reason: Pain (Severe) Stop: 02/28/18 19:31 Last Admin: 12/30/17 22:59 Dose: 1 mg Levofloxacin (Levaquin Pb) 500 mg in 100 mls @ 100 mls/hr IV Q24H [facility] Stop: 02/27/18 08:59 Last Infusion: 12/30/17 10:20 Dose: Infused Sodium Bicarbonate 100 meq/ (Sodium Chloride) 1,100 mls @ 125 mls/hr IV .Q8H48M [facility] Stop: 03/01/18 00:59 Last Admin: 12/30/17 22:59 Dose: 125 mls/hr Aztreonam 0.5 gm/ Dextrose 50 mls @ 100 mls/hr IV Q8HR [facility] Stop: 02/28/18 04:59 Last Infusion: 12/30/17 21:32 Dose: Infused Insulin Aspart (Novolog Insulin Sliding Scale) 0 units SUBQ Q6HR [facility]; Protocol Stop: 02/27/18 11:59 Last Admin: 12/30/17 18:16 Dose: 10 units Insulin Detemir (Levemir Insulin) 15 units SUBQ QPM ANGELA; Protocol Stop: 02/28/18 16:59 Last Admin: 12/30/17 18:16 Dose: 15 units Lorazepam (Ativan) 1 mg IVP Q4HR PRN; Protocol PRN Reason: Agitation Stop: 02/27/18 18:19 Methylprednisolone Sodium Succinate (Solu-Medrol) 60 mg IVP Q6HR ANGELA Stop: 02/27/18 05:59 Last Admin: 12/30/17 18:18 Dose: 60 mg Miscellaneous (Vancomycin Iv Per Pharmacy) 1 ea MC PRN PRN PRN Reason: PROTOCOL Stop: 02/27/18 01:53 Montelukast Sodium (Singulair) 10 mg PO HS ANGELA Stop: 02/28/18 20:59 Last Admin: 12/30/17 21:10 Dose: 10 mg Multivitamins/Vitamin C (Theragran) 1 tab PO DAILY ANGELA Stop: 02/28/18 08:59 Last Admin: 12/30/17 09:18 Dose: 1 tab Nicotine (Nicotine Transdermal System) 21 mg TD DAILY ANGELA Stop: 02/28/18 08:59 Last Admin: 12/30/17 09:20 Dose: 21 mg Pantoprazole Sodium (Protonix) 40 mg IVP DAILY ANGELA Stop: 02/28/18 08:59 Last Admin: 12/30/17 09:18 Dose: 40 mg Venlafaxine HCl (Effexor) 37.5 mg PO DAILY ANGELA; Protocol Stop: 02/28/18 08:59 Last Admin: 12/30/17 08:47 Dose: Not Given General: no acute distress, well developed, well nourished HEENT: atraumatic, normocephalic, PERRLA Neck: supple Cardiovascular: S1S2, regular Lungs: clear to auscultation bilaterally, crackles Abdomen: soft, no tender, no hepatomegaly Extremities: no cyanosis, no clubbing, no edema Neurological: awake, alert, other (confused) - Procedures Procedures: Procedures Procedure Code Date EXCISION OF STOMACH, ENDO, DIAGN [id number] 11/29/17 INDIVID PSYCHOTHERAP NEC 94.39 06/14/05 INSPECTION OF LOWER INTESTINAL TRACT, ENDO [id number] 11/29/17 OTHER GROUP THERAPY 94.44 06/14/05 RECREATIONAL THERAPY 93.81 06/14/05 RESPIRATORY VENTILATION, LESS THAN 24 CONSECUTIVE HOURS [id number] 12/29/17 Infectious Disease Assmt/Plan - Assessment Assessment: Sepsis. Pneumonia. - Plan Plan: Patient is on [employer] status. I will sign off. Nutritional Asmnt/Malnutr-PDOC - Dietary Evaluation Malnutrition Findings (Please click <Entered> for more info): Nutritional Asmnt/Malnutrition Start: 12/30/17 16: 51 Text: Status: Complete Freq: Protocol: Document 12/30/17 16:51 HENG (Rec: 12/30/17 17:10 [id number] Nutritional Asmnt/Malnutrition Patient General Information Nutritional Screening High Risk Consult Diagnosis UTI, CHF, sepsis Pertinent Medical Hx/Surgical Hx acute resp failure, pulmonary fibrosis, COPD, CA of lung, Ca of breast, intraductual with surgery, DM, hypothension, jajor depression, hyperlipidmia, osteoporosis, diabetic CKD stage 3 Subjective Information Pt seen having U/S at time of visit, TF on hold. Pt is intubated. Possible dialysis, wait for family decision. Current Diet Order/ Nutrition Support glucerna 1.2 at 30ml/hr continuous Pertinent Medications novolog, levemir, levaquin, theragran, protonix, sodium bicarbonate, saline flush, vancomycin Pertinent Labs 12/30 Na 135, K 5.5, BUN 109, Cr 3.1, glucose 225, POC 211- 301, Ca 5.8, K 8.4, alb 2.3 Nutritional Hx/Data Height 1.7 m Height (Calculated Centimeters) 170.2 Current Weight (lbs) 62.596 kg Weight (Calculated Kilograms) 62.6 Weight (Calculated Grams) 79368.7 [place] Body Weight 135 Body Mass Index (BMI) 21.6 Weight Status Approriate GI Symptoms GI Symptoms None Last BM none Difficult in: None Skin Integrity/Comment: pressure area to sacral/coccyx purple discorlation multiple sites mottling caroline score 8 Estimated Nutritional Goals BEE in Kcals: Using Current wt Calories/Kcals/Kg 27-32 Kcals Calculated 2945-4824 Protein: Using Current wt Protein g/k.6-0.8 monitor renal labs Protein Calculated 31-42 Fluid: ml per MD Nutritional Problem 1. Problem Problem altered nutrition related labs Etiology electrolytes imbalance, CKD, hx of DM Signs/Symptoms: Na 135, K 5.5, BUN 109, Cr 3.1 , glucose 225, POC 211-301, Ca 5.8, Phos 8.4 Intervention/Recommendation Comments 1. Continue with current TF regimen. It provides 864kcal, 43g protein, 580ml free water. If start dialysis, will recommend switch formula to Nepro. 2. Monitor TF rate, tolerance, wt, skin integrity and labs 3. F/U as high risk in 2-3 days, 01/01-01/02 Expected Outcomes/Goals Expected Outcomes/Goals 1. Pt to meet at least 75% of nutritional needs via nutrition support with tolerance 2. Wt stability, skin integrity to improve, labs to approach WNL.
[2017-12-31] MEDS: Albuterol/Ipratropium Neb 3 ML AERS HHN SCH ×6 (03:26→23:17)
[2017-12-31] MEDS: methylPREDNISolone SS 40 mg Vial IVP SCH ×2 (05:40→11:38)
[2017-12-31] MEDS: INSULIN ASPART SLIDING SCALE 100 UNITS/ML UNIT SUBQ SCH ×2 (05:40→11:38)
[2017-12-31] MEDS: HYDROmorphone 1 mg/mL 1mL Syr IVP PRN ×3 (08:32→14:31)
--- NOTE | 2017-12-31 14:28 | General Progress Note ---
Subjective - Review of Systems Service Date: 12/31/17 Subjective: obtunded, on vent Objective - Results Result Diagrams: 12/30/17 06:06 12/30/17 06:06 Recent Labs: Laboratory Last Values WBC 22.8 Th/cmm (4.8-10.8) H* 12/30/17 06:06 RBC 2.63 Mil/cmm (3.80-5.20) L 12/30/17 06:06 Hgb 8.0 gm/dL (12-16) L 12/30/17 06:06 Hct 23.7 % (41.0-60) L 12/30/17 06:06 MCV 90.1 fl (81-100) 12/30/17 06:06 MCH 30.4 pg (27.0-31.0) 12/30/17 06:06 MCHC Differential 33.7 pg (28.0-36.0) 12/30/17 06:06 RDW 16.1 % (11.5-20.0) 12/30/17 06:06 Plt Count 180 Th/cmm (150-400) 12/30/17 06:06 MPV 7.9 fl 12/30/17 06:06 Add Manual Diff YES 12/30/17 06:06 Band Neutrophils % 5 % (0-10) 12/30/17 06:06 Neutrophils (Manual) 92 % (40-80) H 12/30/17 06:06 Lymphocytes 2 % (20-50) L 12/30/17 06:06 Monocytes 1 % (2-10) L 12/30/17 06:06 Eosinophils 0 % (0-5) 12/29/17 05:30 Basophils 0 % (0-3) 12/29/17 05:30 Platelet Estimate ADEQUATE (NORMAL) 12/29/17 05:30 Platelet Morphology NORMAL (NORMAL) 12/29/17 05:30 RBC Morph Micro Appear NORMAL (NORMAL) 12/29/17 05:30 Eos Smear Source URINE 12/30/17 07:45 Eos Smear Total Cells NONE SEEN (NONE SEEN) 12/30/17 07:45 PT 21.4 SECONDS (9.5-11.5) H 12/30/17 06:06 INR 1.99 (0.5-1.4) H 12/30/17 06:06 PTT (Actin FS) 49.2 SECONDS (26.0-38.0) H 12/30/17 06:06 Specimen Source Arterial 12/30/17 09:10 Sample Site Left Radial 12/30/17 09:10 pH 7.35 (7.35-7.45) 12/30/17 09:10 pCO2 35.0 mmHg (35.0-45.0) 12/30/17 09:10 pO2 117.0 mmHg (80.0-100.0) H 12/30/17 09:10 HCO3 20.6 mEq/L (20.0-26.0) 12/30/17 09:10 Base Excess -5.6 mEq/L (-3.0-3.0) L 12/30/17 09:10 O2 Saturation 98.0 % (92.0-100.0) 12/30/17 09:10 Cirilo Test Positive 12/30/17 09:10 Vent Rate 26 12/30/17 09:10 Inspired O2 60 12/30/17 09:10 Tidal Volume 450 12/30/17 09:10 PEEP 5 12/30/17 09:10 Pressure (ins/psv/peep) N/A 12/30/17 09:10 Critical Value DM 12/30/17 09:10 Sodium 135 mEq/L (136-145) L 12/30/17 06:06 Potassium 5.5 mEq/L (3.5-5.1) H 12/30/17 06:06 Chloride 101 mEq/L (98-107) 12/30/17 06:06 Carbon Dioxide 16.2 mEq/L (21.0-31.0) L 12/30/17 06:06 Anion Gap 23.3 (7.0-16.0) H 12/30/17 06:06 BUN 109 mg/dL (7-25) H* 12/30/17 06:06 Creatinine 3.1 mg/dL (0.6-1.2) H 12/30/17 06:06 Est GFR ( Amer) 19.1 ml/min (>90) 12/30/17 06:06 Est GFR (Non-Af Amer) 15.8 ml/min 12/30/17 06:06 BUN/Creatinine Ratio 35.2 12/30/17 06:06 Glucose 225 mg/dL (70-105) H 12/30/17 06:06 POC Glucose 140 MG/DL (70 - 105) H 12/31/17 11:37 Hemoglobin A1c % 6.1 % (4.0-6.0) H 12/30/17 06:06 Whole Bld Lactic Acid 4.26 mmol/L (0.60-1.99) H* 12/30/17 08:06 Uric Acid 14.8 mg/dL (2.3-6.6) H 12/30/17 06:06 Calcium 5.8 mg/dL (8.6-10.3) L* 12/30/17 06:06 Phosphorus 8.4 mg/dL (2.5-5.0) H 12/30/17 06:06 Magnesium 2.0 mg/dL (1.9-2.7) 12/30/17 06:06 Total Bilirubin 0.9 mg/dL (0.3-1.0) 12/30/17 06:06 AST 1601 U/L (13-39) H 12/30/17 06:06 ALT 376 U/L (7-52) H 12/30/17 06:06 Alkaline Phosphatase 196 U/L (34-104) H 12/30/17 06:06 B-Natriuretic Peptide 1710.0 pg/mL (5.0-100.0) H 12/30/17 06:06 Total Protein 4.3 gm/dL (6.0-8.3) L 12/30/17 06:06 Albumin 2.3 gm/dL (3.7-5.3) L 12/30/17 06:06 Globulin 2.0 gm/dL 12/30/17 06:06 Albumin/Globulin Ratio 1.2 (1.0-1.8) 12/30/17 06:06 Triglycerides 45 mg/dL (<150) 12/29/17 05:30 Cholesterol 29 mg/dL (<200) 12/29/17 05:30 LDL Cholesterol Direct < 7 mg/dL (75-193) L 12/29/17 05:30 HDL Cholesterol 13 mg/dL (23-92) L 12/29/17 05:30 TSH 0.99 uIU/ml (0.34-5.60) 12/29/17 05:30 Ur Random Sodium 16 mmol/L 12/30/17 07:45 Urine Creatinine 13.0 mg/dl (28.0-217.0) L 12/30/17 07:45 Random Vancomycin 21.1 ug/mL (5.0-40.0) 12/30/17 06:06 Serum Ketones SMALL (NEGATIVE) H 12/30/17 06:06 - Physical Exam Vitals and I&O: Vital Signs Temp 96.5 F 12/31/17 08:00 Pulse 85 12/31/17 12:00 Resp 10 12/31/17 12:00 BP 76/41 12/31/17 12:00 Pulse Ox 93 12/31/17 11:11 Intake & Output 12/30/17 12/31/17 12/31/17 18:59 06:59 18:59 Intake Total 6536.197 7537 1100 Output Total 20 0 Balance 3887.794 1247 1100 Weight (lbs) 62.596 kg 62.596 kg Intake: Intake, IV Amount 814.823 8354 1100 Aztreonam 0.5 gm In 50 100 Dextrose 5% 50 ml @ 100 mls/hr IV Q8HR [facility] Rx#: [id number] Calcium Gluconate 3 gm In 0 Sodium Chloride 0.9% 100 ml @ 33 mls/hr IV X1 ONE Rx#:[id number] Levofloxacin 500mg/100mL 100 500 mg In 100 ml @ 100 mls/hr IV Q24H [facility] Rx#: [id number] Norepinephrine 4 mg In 546.255 Dextrose 5% 250 ml @ 22.5 MCG/MIN 85.72 mls/hr IV TITR PRN Rx#:[id number] Sodium Bicarbonate 8.4% 1100 1100 100 meq In Sodium Chloride 0.45% 1,000 ml @ 125 mls/hr IV .Q8H48M [facility] Rx#:[id number] Tube Feeding 360 360 Other 60 50 Output: Urine 20 0 Stool 0 Other: # Bowel Movements 0 Weight Source Bedscale Bedscale Active Medications: Current Medications Acetaminophen (Tylenol) 650 mg PO Q6H PRN PRN Reason: Pain (Mild) Stop: 02/27/18 23:44 Last Admin: 12/30/17 12:09 Dose: 650 mg Albuterol/Ipratropium (Duoneb Neb) 3 ml HHN Q4HRT [facility] Stop: 02/28/18 02:59 Last Admin: 12/31/17 14:26 Dose: 3 ml Albuterol/Ipratropium (Duoneb Neb) 3 ml HHN [id number] PRN PRN Reason: Shortness of Breath Stop: 02/27/18 23:44 Hydromorphone HCl (Dilaudid) 1 mg IVP Q2HR PRN PRN Reason: Pain (Severe) Stop: 02/28/18 19:31 Last Admin: 12/31/17 11:38 Dose: 1 mg Lorazepam (Ativan) 1 mg IVP Q4HR PRN; Protocol PRN Reason: Agitation Stop: 02/27/18 18:19 General: Moderate distress HEENT: Atraumatic, Mucous membr. moist/pink Neck: Supple, +2 carotid pulse wo bruit Cardiovascular: Regular rate, Normal S1, Normal S2 Lungs: Other (few rhonchi, no rales) Abdomen: Bowel sounds, Soft Extremities: no Edema Neurological: no Sensation intact Skin: Other (ecchymosis, hematomas) - Procedures Procedures: Procedures Procedure Code Date EXCISION OF STOMACH, ENDO, DIAGN [id number] 11/29/17 INDIVID PSYCHOTHERAP NEC 94.39 06/14/05 INSPECTION OF LOWER INTESTINAL TRACT, ENDO [id number] 11/29/17 OTHER GROUP THERAPY 94.44 06/14/05 RECREATIONAL THERAPY 93.81 06/14/05 RESPIRATORY VENTILATION, 24-96 CONSECUTIVE HOURS [id number] 12/29/17 Assessment/Plan - Assessment Assessment: UZIEL on CKD Acute on Chronic Resp Failure on Vent Shock Septic Sepsis B/L HAP Anemia of CD A gap met acid on non gap acid T2DM Lung CA Shock liver Severe Electrolyte Imbalance - Plan Plan: Lab - Result Diagrams 12/30/17 06:06 12/30/17 06:06 Current Medications Acetaminophen (Tylenol) 650 mg PO Q6H PRN PRN Reason: Pain (Mild) Stop: 02/27/18 23:44 Last Admin: 12/30/17 12:09 Dose: 650 mg Acetaminophen (Tylenol Extra Strength) 1,000 mg PO BID [facility] Stop: 02/28/18 08:59 Last Admin: 12/30/17 08:47 Dose: Not Given Albuterol/Ipratropium (Duoneb Neb) 3 ml HHN Q4HRT [facility] Stop: 02/28/18 02:59 Last Admin: 12/30/17 11:21 Dose: 3 ml Albuterol/Ipratropium (Duoneb Neb) 3 ml HHN [id number] PRN PRN Reason: Shortness of Breath Stop: 02/27/18 23:44 Aspirin (Aspirin Chewable) 81 mg PO DAILY [facility] Stop: 02/28/18 08:59 Last Admin: 12/30/17 09:18 Dose: 81 mg Atorvastatin Calcium (Lipitor) 80 mg PO QPM [facility]; Protocol Stop: 02/28/18 16:59 Chlorhexidine Gluconate (Peridex) 15 ml MM 0800,1999 [facility] Stop: 02/27/18 19:59 Last Admin: 12/30/17 09:22 Dose: 15 ml Fluticasone Propionate (Flonase) 1 spr NS QPM [facility] Stop: 02/28/18 16:59 Guaifenesin/Dextromethorphan (Robitussin Dm) 10 ml PO DAILY PRN PRN Reason: Cough Stop: 02/27/18 23:44 Levofloxacin (Levaquin Pb) 500 mg in 100 mls @ 100 mls/hr IV Q24H [facility] Stop: 02/27/18 08:59 Last Infusion: 12/30/17 10:20 Dose: Infused Norepinephrine Bitartrate 4 mg (/ Dextrose) 254 mls @ 85.72 mls/hr IV TITR PRN ; Protocol PRN Reason: BP MAINTENANCE (PER PROTOCOL) Stop: 02/27/18 12:54 Last Admin: 12/30/17 09:11 Dose: 13 mcg/min, 49.53 mls/hr Sodium Bicarbonate 100 meq/ (Sodium Chloride) 1,100 mls @ 125 mls/hr IV .Q8H48M [facility] Stop: 03/01/18 00:59 Last Admin: 12/30/17 13:24 Dose: 125 mls/hr Aztreonam 0.5 gm/ Dextrose 50 mls @ 100 mls/hr IV Q8HR [facility] Stop: 02/28/18 04:59 Last Admin: 12/30/17 13:23 Dose: 100 mls/hr Vancomycin HCl 1 gm/ Sodium (Chloride) 250 mls @ 165 mls/hr IV 1800 ONE Stop: 12/30/17 19:30 Insulin Aspart (Novolog Insulin Sliding Scale) 0 units SUBQ Q6HR [facility]; Protocol Stop: 02/27/18 11:59 Last Admin: 12/30/17 12:08 Dose: 8 units Insulin Detemir (Levemir Insulin) 15 units SUBQ QPM [facility]; Protocol Stop: 02/28/18 16:59 Lorazepam (Ativan) 1 mg IVP Q4HR PRN; Protocol PRN Reason: Agitation Stop: 02/27/18 18:19 Methylprednisolone Sodium Succinate (Solu-Medrol) 60 mg IVP Q6HR [facility] Stop: 02/27/18 05:59 Last Admin: 12/30/17 12:07 Dose: 60 mg Miscellaneous (Vancomycin Iv Per Pharmacy) 1 ea MC PRN PRN PRN Reason: PROTOCOL Stop: 02/27/18 01:53 Miscellaneous (Cholecalciferol (Vitamin D3) [Vitamin D3]) 1 tab PO DAILY [facility] Stop: 02/28/18 08:59 Miscellaneous (Cyanocobalamin/Folic Acid [Vitamin H22-Wkzbi Acid Tablet]) 1 each PO DAILY [facility] Stop: 02/28/18 08:59 Miscellaneous (Patiromer Calcium Sorbitex [Veltassa]) 8.4 gm PO 2XW [facility] Stop: 02/27/18 23:44 Miscellaneous (Tiotropium [place] [Spiriva]) 18 mcg INH QPM [facility] Stop: 02/28/18 16:59 Montelukast Sodium (Singulair) 10 mg PO QPM [facility] Stop: 02/28/18 16:59 Multivitamins/Vitamin C (Theragran) 1 tab PO DAILY [facility] Stop: 02/28/18 08:59 Last Admin: 12/30/17 09:18 Dose: 1 tab Nicotine (Nicotine Transdermal System) 21 mg TD DAILY [facility] Stop: 02/28/18 08:59 Last Admin: 12/30/17 09:20 Dose: 21 mg Pantoprazole Sodium (Protonix) 40 mg IVP DAILY [facility] Stop: 02/28/18 08:59 Last Admin: 12/30/17 09:18 Dose: 40 mg Sodium Chloride (Saline Flush) 10 ml IV QSHIFT [facility] Stop: 02/27/18 07:59 Last Admin: 12/30/17 09:22 Dose: 10 ml Venlafaxine HCl (Effexor) 37.5 mg PO DAILY [facility]; Protocol Stop: 02/28/18 08:59 Last Admin: 12/30/17 08:47 Dose: Not Given Lab - Result Diagrams 12/30/17 06:06 12/30/17 06:06 Kidney fnc worse start Kayexalate continue NaHC03 Add Ca gluconate On Levo 13 mcg/min discussed w/ family indications for dialysis & poor clinical status family will discuss code status CXR suggestive of B/L HAP right > left On Azactam & Levofloxacin terminal extubation Nutritional Asmnt/Malnutr-PDOC - Dietary Evaluation Malnutrition Findings (Please click <Entered> for more info): Nutritional Asmnt/Malnutrition Start: 12/30/17 16: 51 Text: Status: Complete Freq: Protocol: Document 12/30/17 16:51 TRESA (Rec: 12/30/17 17:10 [email or web address]) Nutritional Asmnt/Malnutrition Patient General Information Nutritional Screening High Risk Consult Diagnosis UTI, CHF, sepsis Pertinent Medical Hx/Surgical Hx acute resp failure, pulmonary fibrosis, COPD, CA of lung, Ca of breast, intraductual with surgery, DM, hypothension, jajor depression, hyperlipidmia, osteoporosis, diabetic CKD stage 3 Subjective Information Pt seen having U/S at time of visit, TF on hold. Pt is intubated. Possible dialysis, wait for family decision. Current Diet Order/ Nutrition Support glucerna 1.2 at 30ml/hr continuous Pertinent Medications novolog, levemir, levaquin, theragran, protonix, sodium bicarbonate, saline flush, vancomycin Pertinent Labs 12/30 Na 135, K 5.5, BUN 109, Cr 3.1, glucose 225, POC 211- 301, Ca 5.8, K 8.4, alb 2.3 Nutritional Hx/Data Height 1.7 m Height (Calculated Centimeters) 170.2 Current Weight (lbs) 62.596 kg Weight (Calculated Kilograms) 62.6 Weight (Calculated Grams) 77825.7 [place] Body Weight 135 Body Mass Index (BMI) 21.6 Weight Status Approriate GI Symptoms GI Symptoms None Last BM none Difficult in: None Skin Integrity/Comment: pressure area to sacral/coccyx purple discorlation multiple sites mottling caroline score 8 Estimated Nutritional Goals BEE in Kcals: Using Current wt Calories/Kcals/Kg 27-32 Kcals Calculated 9929-1171 Protein: Using Current wt Protein g/k.6-0.8 monitor renal labs Protein Calculated 31-42 Fluid: ml per MD Nutritional Problem 1. Problem Problem altered nutrition related labs Etiology electrolytes imbalance, CKD, hx of DM Signs/Symptoms: Na 135, K 5.5, BUN 109, Cr 3.1 , glucose 225, POC 211-301, Ca 5.8, Phos 8.4 Intervention/Recommendation Comments 1. Continue with current TF regimen. It provides 864kcal, 43g protein, 580ml free water. If start dialysis, will recommend switch formula to Nepro. 2. Monitor TF rate, tolerance, wt, skin integrity and labs 3. F/U as high risk in 2-3 days, 01/01-01/02 Expected Outcomes/Goals Expected Outcomes/Goals 1. Pt to meet at least 75% of nutritional needs via nutrition support with tolerance 2. Wt stability, skin integrity to improve, labs to approach WNL.
--- NOTE | 2017-12-31 14:42 | Internal Medicine Prog Note ---
Internal Medicine Subjective - Subjective Service Date: 12/31/17 Patient seen and examined:: with staff Patient is:: awake Per staff patient has:: tolerating meds Internal Medicine Objective - Results Result Diagrams: 12/30/17 06:06 12/30/17 06:06 Recent Labs: Laboratory Last Values WBC 22.8 Th/cmm (4.8-10.8) H* 12/30/17 06:06 RBC 2.63 Mil/cmm (3.80-5.20) L 12/30/17 06:06 Hgb 8.0 gm/dL (12-16) L 12/30/17 06:06 Hct 23.7 % (41.0-60) L 12/30/17 06:06 MCV 90.1 fl (81-100) 12/30/17 06:06 MCH 30.4 pg (27.0-31.0) 12/30/17 06:06 MCHC Differential 33.7 pg (28.0-36.0) 12/30/17 06:06 RDW 16.1 % (11.5-20.0) 12/30/17 06:06 Plt Count 180 Th/cmm (150-400) 12/30/17 06:06 MPV 7.9 fl 12/30/17 06:06 Add Manual Diff YES 12/30/17 06:06 Band Neutrophils % 5 % (0-10) 12/30/17 06:06 Neutrophils (Manual) 92 % (40-80) H 12/30/17 06:06 Lymphocytes 2 % (20-50) L 12/30/17 06:06 Monocytes 1 % (2-10) L 12/30/17 06:06 Eosinophils 0 % (0-5) 12/29/17 05:30 Basophils 0 % (0-3) 12/29/17 05:30 Platelet Estimate ADEQUATE (NORMAL) 12/29/17 05:30 Platelet Morphology NORMAL (NORMAL) 12/29/17 05:30 RBC Morph Micro Appear NORMAL (NORMAL) 12/29/17 05:30 Eos Smear Source URINE 12/30/17 07:45 Eos Smear Total Cells NONE SEEN (NONE SEEN) 12/30/17 07:45 PT 21.4 SECONDS (9.5-11.5) H 12/30/17 06:06 INR 1.99 (0.5-1.4) H 12/30/17 06:06 PTT (Actin FS) 49.2 SECONDS (26.0-38.0) H 12/30/17 06:06 Specimen Source Arterial 12/30/17 09:10 Sample Site Left Radial 12/30/17 09:10 pH 7.35 (7.35-7.45) 12/30/17 09:10 pCO2 35.0 mmHg (35.0-45.0) 12/30/17 09:10 pO2 117.0 mmHg (80.0-100.0) H 12/30/17 09:10 HCO3 20.6 mEq/L (20.0-26.0) 12/30/17 09:10 Base Excess -5.6 mEq/L (-3.0-3.0) L 12/30/17 09:10 O2 Saturation 98.0 % (92.0-100.0) 12/30/17 09:10 Cirilo Test Positive 12/30/17 09:10 Vent Rate 26 12/30/17 09:10 Inspired O2 60 12/30/17 09:10 Tidal Volume 450 12/30/17 09:10 PEEP 5 12/30/17 09:10 Pressure (ins/psv/peep) N/A 12/30/17 09:10 Critical Value DM 12/30/17 09:10 Sodium 135 mEq/L (136-145) L 12/30/17 06:06 Potassium 5.5 mEq/L (3.5-5.1) H 12/30/17 06:06 Chloride 101 mEq/L (98-107) 12/30/17 06:06 Carbon Dioxide 16.2 mEq/L (21.0-31.0) L 12/30/17 06:06 Anion Gap 23.3 (7.0-16.0) H 12/30/17 06:06 BUN 109 mg/dL (7-25) H* 12/30/17 06:06 Creatinine 3.1 mg/dL (0.6-1.2) H 12/30/17 06:06 Est GFR ( Amer) 19.1 ml/min (>90) 12/30/17 06:06 Est GFR (Non-Af Amer) 15.8 ml/min 12/30/17 06:06 BUN/Creatinine Ratio 35.2 12/30/17 06:06 Glucose 225 mg/dL (70-105) H 12/30/17 06:06 POC Glucose 140 MG/DL (70 - 105) H 12/31/17 11:37 Hemoglobin A1c % 6.1 % (4.0-6.0) H 12/30/17 06:06 Whole Bld Lactic Acid 4.26 mmol/L (0.60-1.99) H* 12/30/17 08:06 Uric Acid 14.8 mg/dL (2.3-6.6) H 12/30/17 06:06 Calcium 5.8 mg/dL (8.6-10.3) L* 12/30/17 06:06 Phosphorus 8.4 mg/dL (2.5-5.0) H 12/30/17 06:06 Magnesium 2.0 mg/dL (1.9-2.7) 12/30/17 06:06 Total Bilirubin 0.9 mg/dL (0.3-1.0) 12/30/17 06:06 AST 1601 U/L (13-39) H 12/30/17 06:06 ALT 376 U/L (7-52) H 12/30/17 06:06 Alkaline Phosphatase 196 U/L (34-104) H 12/30/17 06:06 B-Natriuretic Peptide 1710.0 pg/mL (5.0-100.0) H 12/30/17 06:06 Total Protein 4.3 gm/dL (6.0-8.3) L 12/30/17 06:06 Albumin 2.3 gm/dL (3.7-5.3) L 12/30/17 06:06 Globulin 2.0 gm/dL 12/30/17 06:06 Albumin/Globulin Ratio 1.2 (1.0-1.8) 12/30/17 06:06 Triglycerides 45 mg/dL (<150) 12/29/17 05:30 Cholesterol 29 mg/dL (<200) 12/29/17 05:30 LDL Cholesterol Direct < 7 mg/dL (75-193) L 12/29/17 05:30 HDL Cholesterol 13 mg/dL (23-92) L 12/29/17 05:30 TSH 0.99 uIU/ml (0.34-5.60) 12/29/17 05:30 Ur Random Sodium 16 mmol/L 12/30/17 07:45 Urine Creatinine 13.0 mg/dl (28.0-217.0) L 12/30/17 07:45 Random Vancomycin 21.1 ug/mL (5.0-40.0) 12/30/17 06:06 Serum Ketones SMALL (NEGATIVE) H 12/30/17 06:06 - Physical Exam Vitals and I&O: Vital Signs Temp 96.5 F 12/31/17 08:00 Pulse 78 12/31/17 14:26 Resp 8 12/31/17 14:26 BP 76/41 12/31/17 12:00 Pulse Ox 94 12/31/17 14:26 Intake & Output 12/30/17 12/31/17 12/31/17 18:59 06:59 18:59 Intake Total 5657.799 9649 1100 Output Total 20 0 Balance 7821.875 4118 1100 Weight (lbs) 138 lb 138 lb Intake: Intake, IV Amount 407.858 0099 1100 Aztreonam 0.5 gm In 50 100 Dextrose 5% 50 ml @ 100 mls/hr IV Q8HR [facility] Rx#: [id number] Calcium Gluconate 3 gm In 0 Sodium Chloride 0.9% 100 ml @ 33 mls/hr IV X1 ONE Rx#:[id number] Levofloxacin 500mg/100mL 100 500 mg In 100 ml @ 100 mls/hr IV Q24H [facility] Rx#: [id number] Norepinephrine 4 mg In 546.255 Dextrose 5% 250 ml @ 22.5 MCG/MIN 85.72 mls/hr IV TITR PRN Rx#:[id number] Sodium Bicarbonate 8.4% 1100 1100 100 meq In Sodium Chloride 0.45% 1,000 ml @ 125 mls/hr IV .Q8H48M [facility] Rx#:[id number] Tube Feeding 360 360 Other 60 50 Output: Urine 20 0 Stool 0 Other: # Bowel Movements 0 Weight Source Bedscale Bedscale Active Medications: Current Medications Acetaminophen (Tylenol) 650 mg PO Q6H PRN PRN Reason: Pain (Mild) Stop: 02/27/18 23:44 Last Admin: 12/30/17 12:09 Dose: 650 mg Albuterol/Ipratropium (Duoneb Neb) 3 ml HHN Q4HRT [facility] Stop: 02/28/18 02:59 Last Admin: 12/31/17 14:26 Dose: 3 ml Albuterol/Ipratropium (Duoneb Neb) 3 ml HHN [id number] PRN PRN Reason: Shortness of Breath Stop: 02/27/18 23:44 Hydromorphone HCl (Dilaudid) 1 mg IVP Q2HR PRN PRN Reason: Pain (Severe) Stop: 02/28/18 19:31 Last Admin: 12/31/17 14:31 Dose: 1 mg Lorazepam (Ativan) 1 mg IVP Q4HR PRN; Protocol PRN Reason: Agitation Stop: 02/27/18 18:19 General: weak HEENT: NC/AT, PERRLA Neck: Supple Lungs: CTAB Cardiovascular: RRR, Normal S1, Normal S2, without murmur Abdomen: soft, non-tender, non-distended, positive bowel sound Neurological: unable to follow command - Procedures Procedures: Procedures Procedure Code Date EXCISION OF STOMACH, ENDO, DIAGN [id number] 11/29/17 INDIVID PSYCHOTHERAP NEC 94.39 06/14/05 INSPECTION OF LOWER INTESTINAL TRACT, ENDO [id number] 11/29/17 OTHER GROUP THERAPY 94.44 06/14/05 RECREATIONAL THERAPY 93.81 06 RESPIRATORY VENTILATION, 24-96 CONSECUTIVE HOURS [id number] 12/29/17 Internal Medicine Assmt/Plan - Assessment Assessment: Sepsis. Pneumonia. - Plan Plan: comfort measures cpm Nutritional Asmnt/Malnutr-PDOC - Dietary Evaluation Malnutrition Findings (Please click <Entered> for more info): Nutritional Asmnt/Malnutrition Start: 12/30/17 16: 51 Text: Status: Complete Freq: Protocol: Document 12/30/17 16:51 [email or web address] (Rec: 12/30/17 17:10 [email or web address]) Nutritional Asmnt/Malnutrition Patient General Information Nutritional Screening High Risk Consult Diagnosis UTI, CHF, sepsis Pertinent Medical Hx/Surgical Hx acute resp failure, pulmonary fibrosis, COPD, CA of lung, Ca of breast, intraductual with surgery, DM, hypothension, jajor depression, hyperlipidmia, osteoporosis, diabetic CKD stage 3 Subjective Information Pt seen having U/S at time of visit, TF on hold. Pt is intubated. Possible dialysis, wait for family decision. Current Diet Order/ Nutrition Support glucerna 1.2 at 30ml/hr continuous Pertinent Medications novolog, levemir, levaquin, theragran, protonix, sodium bicarbonate, saline flush, vancomycin Pertinent Labs 12/30 Na 135, K 5.5, BUN 109, Cr 3.1, glucose 225, POC 211- 301, Ca 5.8, K 8.4, alb 2.3 Nutritional Hx/Data Height 5 ft 7 in Height (Calculated Centimeters) 170.2 Current Weight (lbs) 138 lb Weight (Calculated Kilograms) 62.6 Weight (Calculated Grams) 14918.7 [place] Body Weight 135 Body Mass Index (BMI) 21.6 Weight Status Approriate GI Symptoms GI Symptoms None Last BM none Difficult in: None Skin Integrity/Comment: pressure area to sacral/coccyx purple discorlation multiple sites mottling caroline score 8 Estimated Nutritional Goals BEE in Kcals: Using Current wt Calories/Kcals/Kg 27-32 Kcals Calculated 6563-3275 Protein: Using Current wt Protein g/k.6-0.8 monitor renal labs Protein Calculated 31-42 Fluid: ml per MD Nutritional Problem 1. Problem Problem altered nutrition related labs Etiology electrolytes imbalance, CKD, hx of DM Signs/Symptoms: Na 135, K 5.5, BUN 109, Cr 3.1 , glucose 225, POC 211-301, Ca 5.8, Phos 8.4 Intervention/Recommendation Comments 1. Continue with current TF regimen. It provides 864kcal, 43g protein, 580ml free water. If start dialysis, will recommend switch formula to Nepro. 2. Monitor TF rate, tolerance, wt, skin integrity and labs 3. F/U as high risk in 2-3 days, 01/01-01/02 Expected Outcomes/Goals Expected Outcomes/Goals 1. Pt to meet at least 75% of nutritional needs via nutrition support with tolerance 2. Wt stability, skin integrity to improve, labs to approach WNL.
--- NOTE | 2017-12-31 15:27 | Cardiology ---
12/30/[address] Diaz. M-MODE ECHOCARDIOGRAM: Mitral valve; anterior leaflet of mitral valve shows decreased excursion, EF velocity. Posterior leaflet of mitral valve shows decreased excursion. Left ventricular posterior wall shows increased thickness, decreased excursion. Interventricular septum shows increased thickness, decreased excursion, ejection fraction 25%. Left atrium enlarged at 4.3 cm. Aortic root shows normal dimension, normal excursion of aortic leaflets. CONCLUSION: Hypertrophy of the left ventricle, cardiomyopathy, ejection fraction 25%, left atrial enlargement. Two-D ECHO: Long axis view shows enlarged left ventricular cavity with decreased ejection fraction, hypertrophy of the left ventricle. Left atrium enlarged. Aortic root shows normal dimension, normal excursion of aortic leaflets. Short axis view of mitral valve normal. Short axis view of aortic valve normal. Apical four chamber view shows enlarged left ventricular cavity with decreased ejection fraction, hypertrophy of the left ventricle, left atrial enlargement, right atrial enlargement. Right ventricle normal. CONCLUSION: Cardiomyopathy, hypertrophy of the left ventricle. Left atrial enlargement, right atrial enlargement, ejection fraction 25%. Doppler study shows moderate mitral regurgitation, moderate tricuspid regurgitation, right ventricular systolic pressure 57 mmHg with moderate pulmonary hypertension. The patient also has pleural effusion. [facility]# [id number]
[2017-12-31 15:53] LABS: CREATININEURINE 4.8 mg/dl; MICROALBUMIN RANDOM RUINE 779.9
[2017-12-31] MEDS: HYDROmorphone 2 mg/mL 1mL Vial IVP PRN ×4 (16:18→22:15)
--- NOTE | 2018-01-04 09:28 | Discharge Summary ---
DATE OF DISCHARGE: 01/01/2018 SUMMARY DATE OF : 01/01/2018 Unfortunately, this patient is known to have history of lung cancer, breast cancer and chemoradiation and was sent to [place] ____. The patient had increasing shortness of breath and COPD and low saturation and was sent to [facility], [place] ____. She was stable for transfer and was sent to [facility]. Unfortunately, the patient the patient has an acute renal failure, requiring possible dialysis. Family decided to make her DNR. The patient was put on ____ NG tube was removed. The patient was put on pain medication. The patient peacefully on 01/01/2018 with final diagnoses: ____ presented to emergency center ____ aspiration ____ breast cancer and history of lung cancer ____. JOB# [id number]
== END 2018-01-01 00:19 | disposition expired | DRG 871 ==
LOC: MSI 00:47 → TELE 02:22 → ICU 12:27
PROVIDERS: ADMIT Internal Medicine; ATTEND Internal Medicine
PROC: 5A1945Z Respiratory Ventilation, 24-96 Consecutive Hours (ICD-10-PCS; principal; 2017-12-29)
PROC: 0BH17EZ Insertion of Endotracheal Airway into Trachea, Via Natural or Artificial Opening (ICD-10-PCS; 2017-12-29)
DX: A41.9 Sepsis, unspecified organism (principal); J96.20 Acute and chronic respiratory failure, unspecified whether with hypoxia or hypercapnia; J18.9 Pneumonia, unspecified organism; R65.21 Severe sepsis with septic shock; E43 Unspecified severe protein-calorie malnutrition; I50.31 Acute diastolic (congestive) heart failure; K72.00 Acute and subacute hepatic failure without coma; N18.4 Chronic kidney disease, stage 4 (severe); E87.2 Acidosis; C34.90 Malignant neoplasm of unspecified part of unspecified bronchus or lung; N17.9 Acute kidney failure, unspecified; E87.1 Hypo-osmolality and hyponatremia; J44.0 Chronic obstructive pulmonary disease with (acute) lower respiratory infection; Z99.11 Dependence on respirator [ventilator] status; I42.9 Cardiomyopathy, unspecified; E11.22 Type 2 diabetes mellitus with diabetic chronic kidney disease; R62.7 Adult failure to thrive; M81.0 Age-related osteoporosis without current pathological fracture; E78.5 Hyperlipidemia, unspecified; D63.1 Anemia in chronic kidney disease; D05.10 Intraductal carcinoma in situ of unspecified breast; E11.51 Type 2 diabetes mellitus with diabetic peripheral angiopathy without gangrene; Z68.21 Body mass index [BMI] 21.0-21.9, adult; Z88.0 Allergy status to penicillin; Z88.5 Allergy status to narcotic agent; Z88.6 Allergy status to analgesic agent
CPT/HCPCS: 36415-UA; 36600-90; 71045-TC; 76770-TC; 80053-TC; 80061-TC; 80202-TC; 81015-TC; 82010-TC; 82043-90; 82570-TC; 82803-TC; 82948-90; 83036-90; 83605; 83735-TC; 83880-TC; 83930-90; 84100-TC; 84300-TC; 84443-TC; 84550-TC; 85007-TC; 85025-TC; 85610-TC; 87070; 90779; 90799; 93005; 93925-TC; 93970-TC-50; 94002; 94003; 94640; C9113; J0330; J0610; J1170; J1815; J1940; J1956; J2370; J2543; J2920; J3370; J3490; J7030; X6452; X7704; Z7610